=== PATIENT | male | born 1980 | race Caucasian/White ===

== ENCOUNTER 2021-03-15 10:28 | Outpatient (REF) | payer OTHER, SELFPAY ==
[2021-03-15 12:59] LABS: MANUAL DIFF FLAG NO
[2021-03-15 13:01] LABS: Basophils Percent Auto 0.4 % (0-2); Eosinophils Absolute Auto 0.2 X10*3/uL (0.0-0.4); Hematocrit 48.8 % (42-52); Hemoglobin 16.2 g/dl (14.0-18.0); Imm Gran Abs Auto 0.01 X10*3/uL (0.00-0.03); Imm Gran Pct Auto 0.2 % (0.0-0.4); Lymphocytes Absolute Auto 1.6 X10*3/uL (1.2-4.9); Lymphocytes Percent Auto 31.2 % (20-40); Mean Corpuscular HGB Conc 33.2 g/dl (31.0-36.0); Mean Corpuscular Hemoglobin 29.1 pg (27.0-33.0); Mean Corpuscular Volume 87.8 fL (80-98); Mean Platelet Volume 10.7 fL (9.4-12.4); Monocytes Absolute Auto 0.5 X10*3/uL (0.1-1.2); Monocytes Percent Auto 8.6 % (2-11); Neutrophils Absolute Auto 2.9 X10*3/uL (2.0-8.3); Neutrophils Percent Auto 55.6 % (45-73); Platelet Count 184 X10*3/uL (160-400); Red Blood Count 5.56 X10*6/uL (4.60-5.80); White Blood Count 5.3 X10*3/uL (4.8-10.8)
[2021-03-15 13:53] LABS: Alanine Aminotransferase 33 U/L (0-40); Albumin Level 4.7 g/dL (3.5-5.0); Alkaline Phosphatase 78 U/L (39-117); Anion Gap 17 (12-20); Aspartate Amino Transferase 25 U/L (5-37); Bilirubin Total 1.2 mg/dL (0.0-1.0); Blood Urea Nitrogen 16 mg/dL (9-16); Calcium 9.3 mg/dL (8.4-10.2); Carbon Dioxide 24 mmol/L (22-29); Chloride 105 mmol/L (96-108); Cholesterol 199 mg/dL; Estimated Glomerular Filt Rate > 60; Glucose Fasting 87 mg/dL (60-99); HDL Cholesterol 35 mg/dL; LDL Cholesterol Calculated 122 mg/dl; Potassium 5.6 mmol/L (3.3-5.1); Sodium 140 mmol/L (135-145); Total Protein 7.1 g/dL (6.5-8.0); Triglycerides 211 mg/dL
== END 2021-03-15 10:29 | disposition home or self-care (01) ==
LOC: HO.MANLDS 10:28
PROVIDERS: PCP Internal Medicine; Visit Provider Internal Medicine
DX: Z00.00 Encounter for general adult medical examination without abnormal findings (principal)
CPT/HCPCS: 36415; 80053; 80061; 85025

== ENCOUNTER 2021-04-12 10:47 | Outpatient (REF) | payer OTHER, SELFPAY ==
[2021-04-12 13:07] LABS: Alanine Aminotransferase 29 U/L (0-40); Albumin Level 4.3 g/dL (3.5-5.0); Alkaline Phosphatase 71 U/L (39-117); Anion Gap 10 (12-20); Aspartate Amino Transferase 18 U/L (5-37); Bilirubin Total 0.9 mg/dL (0.0-1.0); Blood Urea Nitrogen 15 mg/dL (9-16); Calcium 8.8 mg/dL (8.4-10.2); Carbon Dioxide 27 mmol/L (22-29); Chloride 107 mmol/L (96-108); Estimated Glomerular Filt Rate > 60; Glucose Fasting 82 mg/dL (60-99); Potassium 4.3 mmol/L (3.3-5.1); Sodium 140 mmol/L (135-145); Total Protein 6.6 g/dL (6.5-8.0)
== END 2021-04-12 10:48 | disposition home or self-care (01) ==
LOC: HO.MANLDS 10:47
PROVIDERS: PCP Internal Medicine; Visit Provider Internal Medicine
DX: E87.5 Hyperkalemia (principal)
CPT/HCPCS: 36415; 80053

== ENCOUNTER 2022-07-20 09:33 | Outpatient (REF) | payer OTHER, SELFPAY ==
[2022-07-20 11:21] LABS: MANUAL DIFF FLAG NO
[2022-07-20 11:39] LABS: Basophils Percent Auto 0.7 % (0-2); Eosinophils Absolute Auto 0.2 X10*3/uL (0.0-0.4); Eosinophils Percent Auto 4.1 % (0-4); Hematocrit 45.3 % (42.0-52.0); Hemoglobin 14.9 g/dl (14.0-18.0); Imm Gran Abs Auto 0.01 X10*3/uL (0.00-0.03); Imm Gran Pct Auto 0.2 % (0.0-0.4); Lymphocytes Absolute Auto 1.6 X10*3/uL (1.2-4.9); Lymphocytes Percent Auto 29.4 % (20-40); Mean Corpuscular HGB Conc 32.9 g/dl (31.0-36.0); Mean Corpuscular Hemoglobin 29.2 pg (27.0-33.0); Mean Corpuscular Volume 88.6 fL (80.0-98.0); Mean Platelet Volume 10.5 fL (9.4-12.4); Monocytes Absolute Auto 0.5 X10*3/uL (0.1-1.2); Monocytes Percent Auto 8.1 % (2-11); Neutrophils Absolute Auto 3.2 x10*3/uL (2.0-8.3); Neutrophils Percent Auto 57.5 % (45-73); Platelet Count 187 X10*3/uL (160-400); Red Blood Count 5.11 X10*6/uL (4.60-5.80); Red Cell Distribution Width 12.2 % (11.0-16.0); White Blood Count 5.6 X10*3/uL (4.8-10.8)
[2022-07-20 12:54] LABS: Alanine Aminotransferase 26 U/L (0-40); Albumin Level 4.3 g/dL (3.5-5.0); Alkaline Phosphatase 74 U/L (39-117); Anion Gap 12 (12-20); Aspartate Amino Transferase 19 U/L (5-37); Bilirubin Total 0.9 mg/dL (0.0-1.0); Blood Urea Nitrogen 16 mg/dL (9-16); Calcium 9.1 mg/dL (8.4-10.2); Carbon Dioxide 28 mmol/L (22-29); Chloride 106 mmol/L (96-108); Cholesterol 185 mg/dL; Estimated Glomerular Filt Rate > 60; Glucose Random 95 mg/dL (60-115); HDL Cholesterol 34 mg/dL; LDL Cholesterol Calculated 120 mg/dl; Potassium 5.4 mmol/L (3.3-5.1); Sodium 141 mmol/L (135-145); Total Protein 6.7 g/dL (6.5-8.0); Triglycerides 156 mg/dL
[2022-07-20 12:59] LABS: Prostate Specific Antigen 0.32 ng/mL (<0.05-4.0); Thyroid Stimulating Hormone 1.15 uIU/mL (0.32-4.0); Vitamin D 25-OH Total 30.1 ng/mL (>30)
== END 2022-07-20 09:34 | disposition home or self-care (01) ==
LOC: HO.MANLDS 09:33
PROVIDERS: Visit Provider Internal Medicine
DX: Z00.01 Encounter for general adult medical examination with abnormal findings (principal); Z12.5 Encounter for screening for malignant neoplasm of prostate; Z13.21 Encounter for screening for nutritional disorder
CPT/HCPCS: 36415; 80053; 80061; 82306; 84153; 84443; 85025

== ENCOUNTER 2023-09-13 08:35 | Outpatient (REF) | payer OTHER, SELFPAY ==
[2023-09-13 13:21] LABS: MANUAL DIFF FLAG NO
[2023-09-13 13:50] LABS: Basophils Percent Auto 0.8 % (0-2); Eosinophils Absolute Auto 0.2 X10*3/uL (0.0-0.4); Eosinophils Percent Auto 4.5 % (0-4); Hematocrit 45.3 % (42.0-52.0); Hemoglobin 14.8 g/dl (14.0-18.0); Imm Gran Abs Auto 0.01 X10*3/uL (0.00-0.03); Imm Gran Pct Auto 0.2 % (0.0-0.4); Lymphocytes Absolute Auto 1.4 X10*3/uL (1.2-4.9); Lymphocytes Percent Auto 29.7 % (20-40); Mean Corpuscular HGB Conc 32.7 g/dl (31.0-36.0); Mean Corpuscular Hemoglobin 29.1 pg (27.0-33.0); Mean Platelet Volume 10.9 fL (9.4-12.4); Monocytes Absolute Auto 0.4 X10*3/uL (0.1-1.2); Monocytes Percent Auto 8.1 % (2-11); Neutrophils Absolute Auto 2.7 x10*3/uL (2.0-8.3); Neutrophils Percent Auto 56.7 % (45-73); Platelet Count 190 X10*3/uL (160-400); Red Blood Count 5.09 X10*6/uL (4.60-5.80); Red Cell Distribution Width 12.3 % (11.0-16.0); White Blood Count 4.7 X10*3/uL (4.8-10.8)
[2023-09-13 14:06] LABS: Alanine Aminotransferase 28 U/L (0-40); Albumin Level 4.2 g/dL (3.5-5.0); Alkaline Phosphatase 67 U/L (39-117); Anion Gap 13 (12-20); Aspartate Amino Transferase 30 U/L (5-37); Blood Urea Nitrogen 14 mg/dL (9-16); Calcium 9.3 mg/dL (8.4-10.2); Carbon Dioxide 24 mmol/L (22-29); Chloride 106 mmol/L (96-108); Cholesterol 181 mg/dL (<200); Estimated Glomerular Filt Rate > 60; Glucose Random 83 mg/dL (60-115); HDL Cholesterol 37 mg/dL (>40); LDL Cholesterol Calculated 121 mg/dL (<100); Potassium 4.1 mmol/L (3.3-5.1); Sodium 139 mmol/L (135-145); Total Protein 6.9 g/dL (6.5-8.0); Triglycerides 119 mg/dL (<150)
== END 2023-09-13 08:36 | disposition home or self-care (01) ==
LOC: HO.MANLDS 08:35
PROVIDERS: Visit Provider Internal Medicine
DX: I10 Essential (primary) hypertension (principal)
CPT/HCPCS: 36415; 80053; 80061; 85025

== ENCOUNTER 2024-10-07 08:39 | Outpatient (REF) | payer OTHER, SELFPAY ==
[2024-10-07 13:23] LABS: MANUAL DIFF FLAG NO
[2024-10-07 13:37] LABS: Basophils Percent Auto 0.6 % (0-2); Eosinophils Absolute Auto 0.1 X10*3/uL (0.0-0.4); Eosinophils Percent Auto 1.9 % (0-4); Hematocrit 45.1 % (42.0-52.0); Imm Gran Abs Auto 0.01 X10*3/uL (0.00-0.03); Imm Gran Pct Auto 0.2 % (0.0-0.4); Lymphocytes Absolute Auto 1.4 X10*3/uL (1.2-4.9); Lymphocytes Percent Auto 25.7 % (20-40); Mean Corpuscular HGB Conc 33.3 g/dl (31.0-36.0); Mean Corpuscular Hemoglobin 29.4 pg (27.0-33.0); Mean Corpuscular Volume 88.4 fL (80.0-98.0); Mean Platelet Volume 10.2 fL (9.4-12.4); Monocytes Absolute Auto 0.6 X10*3/uL (0.1-1.2); Monocytes Percent Auto 10.3 % (2-11); Neutrophils Absolute Auto 3.3 x10*3/uL (2.0-8.3); Neutrophils Percent Auto 61.3 % (45-73); Platelet Count 210 X10*3/uL (160-400); Red Cell Distribution Width 12.4 % (11.0-16.0); White Blood Count 5.3 X10*3/uL (4.8-10.8)
[2024-10-07 13:52] LABS: Rheumatoid Factor < 13.0 IU/mL (<15.0)
[2024-10-07 14:14] LABS: Alanine Aminotransferase 37 U/L (0-40); Alkaline Phosphatase 71 U/L (39-117); Anion Gap 10 (12-20); Aspartate Amino Transferase 32 U/L (5-37); Bilirubin Total 0.7 mg/dL (0.0-1.0); Blood Urea Nitrogen 11 mg/dL (9-16); C Reactive Protein 0.18 mg/dL (< or = 0.50); Calcium 9.3 mg/dL (8.4-10.2); Carbon Dioxide 25 mmol/L (22-29); Chloride 107 mmol/L (96-108); Cholesterol 192 mg/dL (<200); Estimated Glomerular Filt Rate > 60; Glucose Random 91 mg/dL (60-115); HDL Cholesterol 35 mg/dL (>40); LDL Cholesterol Calculated 124 mg/dL (<100); Potassium 4.4 mmol/L (3.3-5.1); Sodium 138 mmol/L (135-145); Total Protein 6.7 g/dL (6.5-8.0); Triglycerides 165 mg/dL (<150); Uric Acid 7.5 mg/dL (3.4-7.0)
[2024-10-07 14:19] LABS: Erythrocyte Sedimentation Rate 7 MM/HR (0-15)
[2024-10-12 16:24] LABS: VITAMIN D (1,25 OH) D3 25 pg/mL; Vit D (1,25-Dihydroxy) Total 25 pg/mL (18-72); Vitamin D (1,25 OH) D2 <8 pg/mL
[2024-10-13 11:44] LABS: Anti Nuclear Antibody Screen NEGATIVE (NEGATIVE)
== END 2024-10-07 08:40 | disposition home or self-care (01) ==
LOC: HO.MANLDS 08:39
PROVIDERS: Visit Provider Physician Assistant
DX: E55.9 Vitamin D deficiency, unspecified (principal); I10 Essential (primary) hypertension; M25.50 Pain in unspecified joint
CPT/HCPCS: 36415; 80053; 80061; 82652; 84550; 85025; 85652; 86038; 86140; 86431

== ENCOUNTER 2025-04-13 09:50 | Outpatient (REF) | payer OTHER, SELFPAY ==
--- OUTSIDE RECORDS SUMMARY | 2025-04-13 10:53 | XMS_ITS | Data Portability ---
Author Organization [place] [facility] Her[facility] Mukherjee [facility] [place] Address [address] [place] [address] Care Team Providers Care Program Advisor Name Role Phone LONG DALAL Primary Care Provider [phone] LONG DALAL Referring Provider Assessment Encounter Date Assessment Date Assessment LastModified by Organization Details LastModified Time 02/02/2025 02/02/2025 I went over my findings with him. We looked at the MRI together. Unfortunately, this does confirm a likely near full-thickness tear of his supraspinatus insertion. The natural history of rotator cuff tears was reviewed. Treatment options discussed. We discussed that tears of the rotator cuff do not heal and may progress over time. With that being said, not all rotator cuff tears are symptomatic. We talked at length about treatment options including observation and activity modification, home exercise program/physical therapy, injection therapy, and surgical intervention with a arthroscopic versus open rotator cuff repair. We discussed the nature of the surgery as well as the anticipated recovery time. We discussed expectations regarding surgery, understanding that the primary goal is for improvement in pain and secondarily to maintain strength and range of motion. They understand that not all rotator cuff tears heal following surgery. We discussed that not all tears are repairable. We discussed that atrophic changes are generally not reversible. We discussed that some degree of weakness, stiffness, and/or pain may be present despite surgery. He finds his ongoing symptoms in the shoulder unmanageable. He is a candidate to consider shoulder arthroscopy with rotator cuff repair. Right shoulder arthroscopy, rotator cuff repair, subacromial decompression/acromi oplasty, possible biceps tenotomy vs tenodesis (25%). I went over the nature of the surgery with him as well as the anticipated recovery time. He understands there are no guarantees of success. Should he wish to move forward he can contact the surgical assistant. He would require a medical optimization appointment prior to proceeding with surgery. Greater than 30 minutes was spent with the encounter today, including face to face time with the patient, documentation, review of records/imaging if applicable, and coordination of care. PRIOR: Longstanding greater than 10 years of right shoulder pain. Previous MRI in 2021 demonstrated a partial tear of the supraspinatus. There is concern that his rotator cuff pathology may have progressed over the course of the last couple of years given his exam today. Given his persistent symptoms I recommend repeating his MRI. He is in agreement. I will see him back to go over the results. In the interim he will continue physical therapy/home exercises. He came in fairly certain that he needs surgery. Discussed with him that in many cases partial tears and rotator cuff problems can be managed successfully without surgery. With that said we will see what the MRI shows and how he is doing at the next visit. Questions invited and answered. Not available 03/09/2025 07:53:58 02/12/2025 02/12/2025 44-year-old male presents with chief complaint of left hip pain. He reports the onset of his symptoms as far back as 18 years ago. He reports a progressive worsening of severity and frequency of his pain. He is active . He reports that this is gotten to the point where he can no longer run without pain and even walking is becoming uncomfortable. He describes that rotating the hip provokes pain. He was evaluated at [facility] and was told at one point that he requires total hip arthroplasty. He denies a history of any prior surgery or injection to the left hip. He has done physical therapy for unrelated issues but never for the hip and has not used any specific medicines for left hip pain. He experiences the pain almost exclusively at the groin. 44-year-old male with BMI of 30.6 is ambulatory to the exam room under his own power and is providing his own history in a reliable manner. Direct inspection of left hip is with no visible abnormalities. Internal rotation beyond 20 degrees is provocative of the pain for which she is presenting and generates a painful affect. Distal checks are grossly intact. 44-year-old male with left hip pain. History, examination and x-rays are consistent with advanced osteoarthritis. After discussion regarding treatment options he will be provided an order for physical therapy. He recognizes that he will ultimately require total hip arthroplasty. He is not prepared to schedule surgery at this time but wishes to have further, additional conversation with Dr. Benson. In the interim, he will be provided a note describing that he cannot participate in the cardio components of his PT testing at work. This patient was seen and evaluated by Page Waterman MS, PA-Perry in indirect conjunction with documenting/supervis ing provider Conor Benson MD. He agrees with history, physical examination, tests/diagnostic imaging, and treatment plan. This document was generated using voice recognition software. As a result, there may be unintended spelling, grammatical and/or textual errors. Not available 02/12/2025 15:13:03 03/16/2025 03/16/2025 Persistent right knee pain. He finds his current symptomatology unmanageable and wishes to proceed with surgical intervention. I went over the nature of the surgery with him as well as the anticipated recovery time. He understands there are no guarantees of success. Medical clearance appointment is pending, we will confirm his surgical date once we have that paperwork. PLANNED PROCEDURE: Right knee arthroscopy, fat pad debridement and plica resection, possible chondroplasty I reviewed my findings and plan with the patient today. We went over the nature of the upcoming surgery as well as the anticipated recovery time. We discussed and reviewed the natural history of meniscus tears. We reviewed the function and anatomy of the meniscus. The menisci are fibrocartilaginous wedge-shaped structures that play many roles in the knee, including transmitting axial loads across the tibiofemoral articulation, increasing joint congruency, contact area and stability, decreasing contact pressures, and contributing to shock absorption, lubrication, and joint proprioception. The essential function of the meniscus in dissipating forces across the joint is enabled by a longitudinal orientation of circumferential collagen fibers which convert compressive forces to circumferential hoop stresses. (Arun ARENAS) Meniscus tears are common and may or may not be symptomatic. We discussed that clinical symptoms tend to be more important than radiographic findings. We reviewed treatment options. Many meniscus tears can be treated non-surgically and symptoms may respond to a program of activity modification, home exercise/physical therapy, oral medications, bracing, and/or injections. PRP injections may be considered. Surgical intervention with an arthroscopic partial meniscectomy vs repair is considered for persistent symptoms. The majority of meniscal tears are not repairable. Informed consent was obtained today. The patient clearly understands the information presented and is capable of making decisions voluntarily. They demonstrated a clear understanding of the problem and the risks and benefits of treatment. The discussion included a description of the proposed treatment, including the purpose, duration, methods and implements used, as well as the probability of success. We discussed all material risks of the procedure, as well as the possibility of unforeseen or unanticipated risks. The material risks include, but are not limited to infection, bleeding, injury to blood vessels and/or nerves, scarring, stiffness, no change in symptoms, need for further surgery, blood clots, stroke, and . The discussion further included reasonable alternatives and the risks of not being treated. Postoperative pain medications were reviewed, and side effects discussed. We confirmed their postoperative appointment. I have recommended the patient use a cold/compression unit post-operatively to reduce swelling, improve pain, and reduce the use of oral narcotic pain medications. The patient has been instructed on the use of the machine. The cuff will always be applied with the skin protected. PRIOR: Chronic right knee pain. He has a fair amount of retropatellar irritation and some fat pad impingement. No obvious meniscal tear on his MRI. I went over treatment options with him. Unfortunately he has trialed physical therapy and an injection without any meaningful improvement. He does find his symptoms persistent and limiting with regards to daily activities. Based upon his current imaging he is not a candidate to consider a knee arthroplasty. Right knee arthroscopy, fat pad debridement and plica resection, possible chondroplasty. I went over the nature of the surgery with him as well as the anticipated recovery time. He understands there are no guarantees of success. He understands alternatives including continuing to live with symptoms the way they are and continuing nonoperative treatment interventions. He will give this all consideration and be in touch with the surgical assistant should he wish to consider this further. He would require a medical optimization appointment prior to confirming a surgical date. Questions invited and answered. Not available 03/16/2025 12:08:19 03/23/2025 03/23/2025 HPI : Thank you for the pleasure of requesting a consultation on this patient. Patient comes in complaining of left hip pain. This patient is experiencing left hip pain, which is moderate in intensity, and has recently worsened. The pain limits some activities of daily living. Pain and restriction of function are significant at this time. He has done physical therapy. He has the medications. He has not having continued symptoms. He has been seen by Dr. Martinez for his right knee and right shoulder. Review of systems is negative for other rapidly progressive neurological disorder, chest pain, shortness of breath, fevers, chills, or any signs of active or persistent local or systemic infection. Physical Exam : Patient is well nourished, well-developed, in no acute distress, with appropriate mood and affect. The patient is oriented to time, place, and person. Respirations are even and unlabored. There is no inguinal adenopathy. Examination of the contralateral hip shows normal range of motion, strength, no tenderness, and intact skin. The affected limb is well-perfused, shows a grossly normal motor and sensory examination. Examination of the left hip shows no skin lesions. Hip motion is reduced. FADIR is positive and JUNIOR is positive. Stinchfield test is positive. Leg lengths are approximately left less than right by 5 mm.. Both hips are stable and muscle strength is normal. Pedal pulses are palpable. Radiographs of the left hip from January 2025 demonstrate degenerative joint disease with joint space narrowing, osteophyte formation, and subchondral sclerosis. Assessment/Plan : The patient has left hip arthritis. An extensive discussion was conducted on the natural history of the disease and the variety of surgical and non-surgical options available to the patient including non-steroidal anti-inflammatory medications, physical therapy, maintenance of ideal body weight, and reduction of activity. We had extensive discussion regarding total hip replacement. Since he is getting right knee arthroscopy surgery tomorrow with Dr. Martinez, we are holding off on total hip replacement surgery at this time. He is going to recover from this and monitor his symptoms. He will follow-up with me in 6 months with reevaluation at that time. 10 minutes reviewing previous charting. 10 minutes spent obtaining history. 5-minute spent on physical exam. 7 minutes spent reviewing treatment plan. [email or web address] Not available 03/23/2025 14:42:30 04/01/2025 04/01/2025 Patient is now 8 days status post right knee surgery and is recovering very well. I reviewed my findings with the patient today. We reviewed the operative findings. We reviewed precautions and gradual return to activity. He will follow-up with us in 4 to 5 weeks for recheck. Questions were invited and answered. Routine incision care reviewed. Medications reviewed. Side effects discussed. Precautions reviewed. DME adjusted as appropriate. [email or web address] Not available 04/01/2025 12:56:59 Plan of Treatment Reminders Order Date Submit Date Provider Last Modified By Organization Details Last Modified Time Details Appointments POST-OP 2024 03:30P M MATT CRUZ PA-C Not available Not available Not available FOLLOW UP 2024 04:00P M Conor Benson MD Not available Not available Not available Lab None recorded. Referral None recorded. Procedures None recorded. Surgeries shoulder arthrosco py (SURG) 2024 025 [email or web address] Not available 02/09/2025 08:47:44 Imaging XR, hip, unilatera l, 2 or 3 view 2024 025 [email or web address] [facility], [address], [place], [address], 02/12/2025 15:19:57 Medication Orders None recorded. Patient TargetsNo targets recorded. Patient Instructions Encounter Date Encounter Id Patient Instructions Last Modified By Organization Details Last Modified Time 02/02/2025 [id number] views of the right shoulder were obtained on 12/25/2024 in the [place] office. Glenohumeral joint space well-maintained. Acromiohumeral interval intact. Minimal degenerative changes at the AC joint. Type II acromion. Findings: Well-maintained joint space right shoulder. Interpreted by: Chilo Martinez MD Not available 02/02/2025 06:29:09 02/12/2025 [id number] physical therapy* [email or web address] Not availa ble 02/19/2025 08:24:10 work status report* - May not participate in cardio components of PT testing pending further orthopedic follow-up. [email or web address] Not available 02/19/2025 08:24:10 {{2 3 4* 5 6 7 8 9 }} view X-ray study obtained during today's office encounter show {{no}} evidence of {{mild moderate se chandrakant*}} {{right left* bila teral}} {{hip* knee}} osteoarthritis. There is joint space narrowing, subchondral sclerosis and marginal osteophytosis. Kellgren-Shorty grade {{0 1 2 3* 4}}. No evidence of acute fracture or osteolytic findings. Not available 02/12/2025 15:13:25 03/16/2025 [id number] views of the right shoulder were obtained on 12/25/2024 in the [place] office. Glenohumeral joint space well-maintained. Acromiohumeral interval intact. Minimal degenerative changes at the AC joint. Type II acromion. Findings: Well-maintained joint space right shoulder. Interpreted by: Chilo Martinez MD Not available 03/15/2025 12:17:35 Reason for Referral None Reported. Results Created Date Observation Date Name Description Value Unit Range Abnormal Flag Note LastModifiedBy Organization Detail LastModifiedTime 02/03/20 25 imagi ng/di elvieos tic resul t No observ ation record ed. [email or web address] Not Available 02/02 15:23:36 Result Notes None recorded. Problems Name Problem SNOMED Code Status Onset Date Resolution Date Notes Provider Name and Address Organization Details Recorded Time Pain of knee region 8569428256 Active 2024 Chilo Martinez MD [address], [place], [address], [place] [facility], [facility] 5 15:30:15 Synovial plica syndrome of right knee 5095662460935 00 Active [address], [place], [address], [place] [facility], [facility] 5 15:30:20 Pain of right shoulder region Active [address], [place], [address], [place] [facility], [facility] 5 12:49:53 Chronic pain of right upper limb 2670508089948 9108 Active 2024 Chilo Martinez MD [address], [place], [address], [place] [facility], [facility] 06:29:54 Full thickness rotator cuff tear 011845594 Active 2024 Chilo Martinez MD [address], [place], [address], [place] [facility], [facility] 5 15:44:09 Osteoarthri tis of left hip joint 7390691785479 08 Active 2024 PAGE WATERMAN PA-C [address], [place], [address], [place] [facility], [facility] 15:10:24 Problem Notes None recorded. Procedures Surgical History Date Name Laterality Status Provider Name and Address Organization Details Recorded Time 03/24/20 25 KNEE ARTHROSCOPY (SURG) completed Ana Laura Weeks [place] [facility] 03/25/2025 09:47:23 Shoulder Surgery completed Karissa Sapp [place] [facility] 12/25/2024 10:39:57 Imaging Results Imaging Date Name Status LastModified by [facility] Details LastModified Time 02/02/2025 imaging/diag nostic result completed [email or web address] Information not available 02/02/2025 15:23:36 Procedure Notes None recorded. Medical Equipment None Reported. Allergies No known drug allergies Medications Name Sig Start Date Stop Date Status Note LastModified by Organization Details LastModified Time prednisone 10 mg tablet TAKE 4 TABLETS BY MOUTH ONCE DAILY FOR 3 DAYS, THEN 3 TABLETS FOR 3 DAYS, THEN 2 TABLETS FOR 3 DAYS, THEN 1 TABLET FOR 3 DAYS 12/25 completed Not Available Not Available Not Available meloxicam 15 mg tablet TAKE 1 TABLET BY MOUTH IN THE MORNING FOR 7 DAYS. START THE DAY AFTER SURGERY 04/01 completed Not Available Not Available Not Available prednisone 20 mg tablet TAKE ONE TABLET BY MOUTH EVERY DAY FOR 10 DAYS 12/25 completed Not Available Not Available Not Available aspirin 81 mg tablet,shy yed release TAKE 1 TABLET BY MOUTH EVERY 12 HOURS WITH MEALS FOR 21 DAYS . START DAY AFTER SURGERY active Not Available Not Available No t Available amoxicillin 875 mg tablet TAKE ONE TABLET BY MOUTH EVERY 12 HOURS DIRECTED X 7 DAYS 12/25 completed Not Available Not Available Not Available methocarbam ol 750 mg tablet TAKE ONE TABLET BY MOUTH THREE TIMES A DAY NEEDED FOR SPASM 02/12 completed Not Available Not Available Not Available IBU 600 mg tablet TAKE ONE TABLET BY MOUTH FOUR TIMES A DAY NEEDED FOR PAIN. TAKE WITH FOOD OR MILK 02/12 completed Not Available Not Available Not Available trazodone 100 mg tablet TAKE ONE TABLET BY MOUTH EVERY DAY active Not Available Not Available No t Available cephalexin 500 mg capsule TAKE ONE CAPSULE BY MOUTH EVERY 6 HOURS START EVENING OF SURGICAL PROCEDURE DO NOT TAKE PRIOR TO SURGERY 04/01 completed Not Available Not Available Not Available lisinopril 10 mg tablet TAKE ONE TABLET BY MOUTH EVERY DAY active Not Available Not Available No t Available nifedipine ER 60 mg tablet,exte nded release TAKE ONE TABLET BY MOUTH EVERY DAY active Not Available Not Available No t Available ondansetron 4 mg disintegrat ing tablet DISSOLVE ONE TABLET BY MOUTH TWICE A DAY NEEDED FOR NAUSEA 04/01 completed Not Available Not Available Not Available oxycodone 5 mg tablet TAKE ONE TABLET BY MOUTH EVERY SIX TO EIGHT HOURS NEEDED . DO NOT START UNTIL AFTER SURGERY 04/01 completed Not Available Not Available Not Available Vitals Date Recorded Body height Body mass index (BMI) Body weight Provider Name and Address Organization Details Last Updated DateTime 02/02/2025 185.42 cm 30.6 kg/m2 726932.[address] [place] [facility] 02/02/2025 15:29:44 Date Recorded Body height Body mass index (BMI) Body weight Provider Name and Address Organization Details Last Updated DateTime 03/16/2025 185.42 cm 30.7 kg/m2 218212.[address] [facility] 03/16/2025 10:10:16 Date Recorded Body height Provider Name an d Address Organization Details Last Updated DateTime 03/23/2025 185[address] [place] [facility] 03/23/2025 14:27:22 Date Recorded Body height Body mass index (BMI) Body weight Provider Name and Address Organization Details Last Updated DateTime 04/01/2025 185.42 cm 30.6 kg/m2 947113.[address] [place] [facility] 04/01/2025 10:23:38 Social History None recorded. Functional Status Question Answer Note LastModified by Organizat ion Details LastModified Time How many times per week do you consume alcohol? 1-2 times per week [email or web address] Information not available 12/25/2024 Do you use any illicit or recreational drugs? No [email or web address] Information not available 12/25/2024 Do you or have you ever used any other forms of tobacco or nicotine? No [email or web address] Information not available 12/25/2024 What is your level of alcohol consumption? Occasional [email or web address] Information not available 12/25/2024 Are you currently employed? Yes [email or web address] Information not available 12/25/2024 What is your occupation? [email or web address] Information not available 12/25/2024 Mental Status None recorded. Family History Relationship Description Onset Age of this Age Resolved Age Notes LastModified by Organization Details LastModified Time Father History of cancer of unknown primary site [email or web address] Not available 10:39:18 Father Hypertensive disorder [email or web address] Not available 2024 10:39:37 Mother Hypertensive disorder [email or web address] Not available 2024 10:39:37 Brother Hypertensive disorder [email or web address] Not available 2024 10:39:37 Medical History Condition Response Hypertension Y Past Encounters Encounter ID Performer Location Encounter Start Date Encounter Closed Date Diagnosis/Indication Diagnosis SNOMED-CT Code Diagnosis ICD10 Code Diagnosis Note [id number] MD ERIKA Jones [address] [facility] [place] [address] 12/25/2024 10:21:47 12/25/2024 11:10:35 Pain of right shoulder region 6153301635 M25.511 [id number] MD ERIKA Jones [address] [place] [address] [place] [id number] 01/04/2025 15:06:10 01/04/2025 15:40:25 Pain of knee region 7961248505 M25.561 G89.29 Synovial p lica syndrome of right knee 3020780497 20402 M67.51 [id number] MD ERIKA Jones [place] [id number] 02/02/2025 15:21:03 02/02/2025 15:51:55 Chronic pain of right upper limb 7063268803 0994620 M25.511 G89.29 Full thick ness rotator cuff tear 087694515 M75.121 [id number] RASHAAD SAINZ [place] [id number] 02/12/2025 14:28:43 02/12/2025 15:19:08 Pain of hip region 74782602 M25.552 Osteoarthr itis of left hip joint 4872766483 50170 M16.12 [id number] MD ERIKA Jones [place] [id number] 03/16/2025 10:05:08 03/16/2025 10:27:59 Pain of knee region 4898680022 M25.561 G89.29 Synovial p lica syndrome of right knee 7768494734 55649 M67.51 [id number] [place] [id number] 03/23/2025 14:19:20 03/23/2025 14:44:05 Osteoarthritis of left hip joint 6817674122 68881 M16.12 [id number] [place] [id number] 04/01/2025 10:16:24 04/01/2025 10:47:08 Postoperative visit 686230867 Z48.89 History of operative procedure on knee 648615046 Z98.890 DOS 03/24/25: Right knee arthroscop y, fat pad debridemen t and plica resection, chondropla sty Health Concerns Section Related Observation LastModified by Organization Detai ls LastModified Time None Recorded Concern Status LastModified by Organization Details LastModified Time None Recorded Advance Directives Directive None Recorded Payers Encounter Date Sequence Insurance Name Policy Number Policy Mcdowell Covered Member ID Mcdowell Member ID Guarantor Name 02/02/2025 1 [facility] () Jakob Magallanes [id number] Jakob Magallanes 02/12/2025 1 [facility] () Jakob Magallanes [id number] Jakob Magallanes 03/16/2025 1 [employer] () Jakob Magallanes [id number] Jakob Magallanes 03/23/2025 1 [facility] () Jakob Magallanes [id number] Jakob Magallanes 04/01/2025 1 [facility] () Jakob Magallanes [id number] Jakob Magallanes Notes Date Note Type Note Provider Name and Address Organization Details Recorded Time 02/02/2025 text/html Patient returns for reevaluation of his right shoulder. No interval change in his symptoms. He rates his pain as a 4/10. He did have an MRI and brings it in today for review. PRIOR:44-year-old [id number] gentleman here for an evaluation of chronic right shoulder pain. He tells me he has a chronic history of bilateral shoulder problems related to doing repetitive push-ups in the . He is still in the . He has been evaluated and treated at [facility], but he tells me they no longer take his insurance. He had left shoulder surgery, looking at the records he brought it sounds like it was a rotator cuff repair. He states he is better after the surgery but still is in physical therapy for the rest of my life . He is having persistent somewhat similar right shoulder pain. The right side pops. He notes anterolateral discomfort with abduction. He notes some deep anterior pain. He has occasional night pain. He denies instability. He denies any radiating pain past the elbow. He recalls trying cortisone maybe once or twice in the right shoulder. He has had physical therapy in the past for the right side. Pain is variable ranging between a 2 to an 8 on a 10 point scale. He has been told he likely needs surgery for the right side and therefore presents today. He did have an MRI back in October 2022 of the right side. He has a history of high blood pressure. He smokes cigars. He is stationed at [employer] in [place]. Chilo Martinez MD [address], [place], [id number], [facility] - [facility] 03/09/2025 07:54:08 03/16/2025 text/html Patient returns for a preoperative consultation for upcoming right knee surgery. He reports no interval change in his symptoms. He denies any drug allergies. He is not taking any blood thinners. He denies a history of blood clots or DVT. Denies a history of clotting disorders. Denies a history of adverse reactions to anesthesia or history of malignant hyperthermia. PRIOR:44-year-old gentleman here for an evaluation of persistent chronic right knee pain. He recalls that he hyperextended the knee maybe 20 years ago but he never sought any evaluation or treatment. About 2 years ago he noted the knee starting to throb a bit. He reports occasional instability and some cracking. He has some retropatellar pain when he goes downstairs. He treated with a cortisone injection 3 to 4 months ago at [facility] without any real improvement. He has had some physical therapy focused on leg strengthening, he thinks that if anything it caused a bit of increased discomfort. He did his physical therapy at [facility]. He was told that [facility] that he needs a knee replacement. He has had workup with an MRI as well as x-rays. He also has a history of low back pain. He has bilateral hip pain, left greater than right and has been diagnosed with osteoarthritis. He is also having some shoulder issues. Chilo Martinez MD [address], [place], [id number], [facility] - [facility] 03/16/2025 12:08:27 04/01/2025 text/html DOS 03/24/25: Ri t knee arthroscopy, fat pad debridement and plica resection, chondroplasty Patient presents for their first post op visit. Patient is now 9 days status post right knee surgery. He reports his preoperative pain is gone. He feels great. He has not required any pain medication in about 4 days. He reports he has been back to his regular activities and is not feeling any discomfort. 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 Denies problems with the incisions. Denies chest pain, calf pain, or shortness of breath. MATT CRUZ PA-C [address], [place], [id number], [place] [facility] 04/01/2025 12:57:11
--- OUTSIDE RECORDS SUMMARY | 2025-04-13 10:53 | XMS_ITS | Data Portability ---
Author Organization [facility] Address [address] [place] [address] Assessment Encounter Date Assessment Date Assessment LastModified by Organization Details LastModified Time 09/23/2024 09/23/2024 Patient agreed and verbally consents to this audio and video Telehealth appt via a secure platform [email or web address] Not available 09/23/2024 11:07:51 10/26/2024 10/26/2024 [id number] [place] [id number] (FAMILY ADVOCATE) MDM MODERATE MUST MEET 2 OUT OF 3 ELEMENTS: PROBLEMS, DATA OR RISK ELEMENT 1: PROBLEMS ADDRESSED 1 OR MORE CHRONIC ILLNESS WITH EXACERBATION OR 2 OR MORE STABLE CHRONIC ILLNESSES OR 1 UNDIAGNOSED NEW PROBLEM OR 1 ACUTE ILLNESS W/SYMPTOMS OR 1 ACUTE COMPLICATED INJURY ELEMENT 2: DATA MUST MEET 1 OF 3 CATEGORIES CATEGORY 1: REVIEW OF PRIOR EXTERNAL NOTES, REVIEW OF RESULTS, ORDERING OF EACH TEST, ASSESSMENT REQUIRING INDEPENDENT HISTORIAN OR CATEGORY 2: INDEPENDENT INTERPRETATION OF TESTS BY ANOTHER PHYSICIAN OR SPECIALIST OR CATEGORY 3: DISCUSSION OF MGT OR TEST INTERPRETATION W/EXTERNAL PHYSICIAN OR SPECIALIST ELEMENT 3: RISK RISK OF COMPLICATIONS AND/OR MORBIDITY OR MORTALITY OF PATIENT MANAGEMENT PROVIDER MUST THOROUGHLY DOCUMENT EACH ELEMENT THAT IS COVERED Not available 10/26/2024 16:09:23 01/19/2025 01/19/2025 [address] [place] [address] (FAMILY ADVOCATE) : MDM LOW MUST MEET 2 OF 3 ELEMENTS: PROBLEMS, DATA OR RISK ELEMENT 1: PROBLEMS ADDRESSED (LOW): 2 OR MORE SELF-LIMITED OR MINOR PROBLEMS OR 1 STABLE CHRONIC ILLNESS OR 1 ACUTE UNCOMPLICATED ILLNESS OR INJURY ELEMENT 2: DATA TO BE REVISED AND ANALYZED (LOW) MUST MEET 1 OF 2 CATEGORIES: CATEGORY 1. REVIEW OF PRIOR EXTERNAL NOTES/RESULTS, ORDERING OF TEST(S) CATEGORY 2. ASSESSMENT REQUIRING INDEPENDENT HISTORIAN(S) INCLUDE WHO THE HISTORIAN IS AND RELATION TO PT AND WHY PT IS UNABLE TO GIVE COMPLETE HISTORY ELEMENT 3: RISK (LOW) RISK OF COMPLICATIONS AND/OR MORBIDITY OR MORTALITY OF PATIENT MANAGEMENT PROVIDER MUST THOROUGHLY DOCUMENT ALL OF THE ELEMENTS COVERED Not available 01/19/2025 15:33:44 04/09/2025 04/09/2025 [address] [place] [address] (FAMILY ADVOCATE) MDM MODERATE MUST MEET 2 OUT OF 3 ELEMENTS: PROBLEMS, DATA OR RISK ELEMENT 1: PROBLEMS ADDRESSED 1 OR MORE CHRONIC ILLNESS WITH EXACERBATION OR 2 OR MORE STABLE CHRONIC ILLNESSES OR 1 UNDIAGNOSED NEW PROBLEM OR 1 ACUTE ILLNESS W/SYMPTOMS OR 1 ACUTE COMPLICATED INJURY ELEMENT 2: DATA MUST MEET 1 OF 3 CATEGORIES CATEGORY 1: REVIEW OF PRIOR EXTERNAL NOTES, REVIEW OF RESULTS, ORDERING OF EACH TEST, ASSESSMENT REQUIRING INDEPENDENT HISTORIAN OR CATEGORY 2: INDEPENDENT INTERPRETATION OF TESTS BY ANOTHER PHYSICIAN OR SPECIALIST OR CATEGORY 3: DISCUSSION OF MGT OR TEST INTERPRETATION W/EXTERNAL PHYSICIAN OR SPECIALIST ELEMENT 3: RISK RISK OF COMPLICATIONS AND/OR MORBIDITY OR MORTALITY OF PATIENT MANAGEMENT PROVIDER MUST THOROUGHLY DOCUMENT EACH ELEMENT THAT IS COVERED Not available 04/09/2025 12:19:14 Plan of Treatment Reminders Order Date Submit Date Provider Last Modified By Organization Details Last Modified Time Details Appointments None recorded. Lab rf (rheumatoi d factor), serum 2024 025 [facility], [address] [place] [address], [place], [address], 12:30:13 ESR (erythrocy te sedimentat ion rate), blood 2024 025 [facility], [address] [place] [address], [place], [address], 12:30:13 C-reactive protein, quantitati ve, serum or plasma 2024 025 [facility], [address] [place] [address], [place], [address], 5 12:30:13 uric acid, serum or plasma 2024 025 [facility], [address] [place], [address], 05/16/202 5 15:55:03 C-reactive protein, quantitati ve, serum or plasma 2023 [facility] (Centralized Electronic Ordering - All Locations), Patient Can Go To The Location Of Their Choice, [facility] [place] [facility] [place] 16:15:24 uric acid, serum or plasma 2023 [facility] (Centralized Electronic Ordering - All Locations), Patient Can Go To The Location Of Their Choice, [id number] 16:15:23 HLA-B27 related Ag 2023 [facility] (Centralized Electronic Ordering - All Locations), Patient Can Go To The Location Of Their Choice, [id number] 16:15:24 sjogren antibody panel, serum 2023 LILY [facility] (Centralized Electronic Ordering - All Locations), Patient Can Go To The Location Of Their Choice, [facility] [place] [facility] [place] 19:17:29 CBC w/ auto diff 2023 [facility], [address] [place] [address], [address], 11:31:33 lipid panel, blood 2023 [facility], [address] [place] [address], [address], 11:31:33 vitamin D, 25-hydroxy , total, serum 2023 [facility], [address] [place] [address], [address], 4 11:22:25 uric acid, serum or plasma 2023 [facility], [address] [place] [address], [address], 4 11:15:10 C reactive protein, QN, serum or plasma 2023 [facility], [address] [place] [address], [address], 4 11:15:10 rf (rheumatoi d factor), serum 2023 [facility], [address] [place] [address], [address], 4 11:15:10 ESR (erythrocy te sedimentat ion rate), blood 2023 [facility], [address] [place] [address], [address], 4 11:15:10 ANGEL (antinucle ar antibodies ) screen, serum 2023 [facility], [address] [place] [address], [address], 4 11:56:13 CMP, serum or plasma 2023 [facility], [address] [place] [address], [address], 4 11:31:32 Referral None recorded. Procedures None recorded. Surgeries None recorded. Imaging XR, lumbar spine, 2 view [email or web address] [place] [address] [facility], [address] [place], [address], 5 13:48:50 XR, toe(s), 2 or more view 2024 025 [facility], [address] [place], [address], 5 13:48:50 XR, ankle, 3 or more view [address]23 [facility], [address] [place], [address], 17:04:07 XR, knee, [address] [facility], [address] [facility], [place], [address], 17:14:42 Medication Orders amoxicilli n 875 mg tablet 2023 024 [id number], [address] [place], [address], 15:43:15 Patient TargetsNo targets recorded. Patient Instructions Encounter Date Encounter Id Patient Instructions Last Modified By Organization Details Last Modified Time 01/19/2025 [id number] back care and preventing injuries: care instructions Not available 01/19/2025 15:38:44 getting back to normal after low back pain: care instructions Not available 01/19/2025 15:38:44 learning about relief for back pain Not available 01/19/2025 15:38:44 Reason for Referral None Reported. Results Created Date Observation Date Name Description Value Unit Range Abnormal Flag Note LastModifiedBy Organization Detail LastModifiedTime 10/28/20 24 10/28/2024 XR, ankle , 3 or more view No observ ation record ed. [email or web address] Not Available 2023 09:21:24 10/28/20 24 10/28/2024 XR, knee, 3 view No observ ation record ed. [email or web address] Not Available 2023 09:21:24 12/10/19 25 12/10/2024 MRI, knee, w/o contr ast No observ ation record ed. Not Available 2024 23:32:37 01/20/20 25 01/20/2025 MRI, shoul esteban, w/o contr ast No observ ation record ed. [email or web address] [facility] [address] [facility] [address], [place], [address], 01/29/2025 08:33:49 Result Notes None recorded. Problems Name Problem SNOMED Code Status Onset Date Resolution Date Notes Provider Name and Address Organization Details Recorded Time Insomnia 797241815 Active 2018 Not Available [facility] 3 13:43:22 Eczema 04839360 Completed 201911/22/2021 Removal Reason: resolve Sean Luo, DO [address] [place], [address], [facility] 1 16:13:27 Elevated blood-pr essure reading without diagnosi s of hyperten aileen 826017155 Completed 202011/22/2021 Sean Luo, DO [address] [facility], [place], [address], [facility] 1 16:13:39 Urethral strictur e 79026824 Active 2020 Not Available [facility] 3 13:43:22 Hyperten sive disorder 08514145 Active 2020 Not Available [facility] 3 13:43:22 Pain of right shoulder joint 8559441608 6020041 Active 2021 Not Available [facility] 3 13:43:22 Pain of right knee joint 4335741642 70889 Active 2021 Not Available [facility] 3 13:43:22 Tendinit is of right quadrice ps tendon 4162498750 8627873 Active 2021 Not Available [facility] 3 13:43:22 Pain of left shoulder joint 7805685719 8052426 Active [address] garcía doing well Sean Luo, DO [address] [facility], [place], [address], [facility] 3 14:41:58 Chondrom alacia of right patella 3952523648 4352538 Active 2021 Not Available [facility] 3 13:43:22 Adhesive capsulit is of right shoulder 2266256702 53527 Active 2021 Not Available [facility] 3 13:43:22 Fracture of left rib 9813425641 6997586 Active 2021 #9 rib Not Available [facility] 3 13:43:22 Supraspi natus tear 948703689 Active [address] Not [address] [facility] 3 13:43:22 Vitamin D deficien 03982440 Active 2022 Not [address] [facility] 3 13:43:22 Chronic insomnia 525798554 Active 2022 Sean Luo DO [address] [place] [address], [address], [facility] 3 16:16:19 Instabil ity of joint of right knee 6104741008 610415 Active 2022 Sean Luo DO [address] [place] [address], [address], [facility] 3 14:41:19 Pain of left hip joint 6230766972 13672 Active 2023 Sean Luo DO [address] [place] [address], [address], [facility] 4 15:57:38 Pain of multiple joints 28155600 Active 2023 Sean Luo DO [address] [place] [address], [address], [facility] 4 21:43:55 Acute bacteria l bronchit is 272614318 Active 2023 DOMI TIMMONS [address] [place] [address], [address], [facility] 4 11:07:40 Pain of right ankle joint 8150248221 4230423 Active 2023 Sean Luo DO [address] [place] [address], [address], [facility] 4 15:59:59 Generali zed osteoart hritis 420591987 Active 2023 Sean Luo DO [address] [place] [address], [address], [facility] 4 16:12:20 Injury of tendon of the rotator cuff of shoulder 958235436 Active 2024 Sean Luo, DO [address] [place] [address], [address], [facility] 5 23:34:29 Low back pain 396326862 Active 2024 Sean Luo, DO [address] [place] [address], [address], [facility] 5 15:34:00 Right rotator cuff strain Active 2024 Sean Luo [address], [address], [facility] 5 12:21:14 Rotator cuff arthropa thy of right shoulder 9126207536 6623143 Active 2024 Sean Luo DO [address] [place] [address], [address], [facility] 5 12:21:32 Rotator cuff arthropa thy of left shoulder 7151286852 9244104 Active 2024 Sean Luo, [address] [place] [address], [address], [facility] 5 12:22:23 Osteoart hritis of left hip joint 8557761067 19837 Active 2024 Sean Luo, [address] [place] [address], [address], [facility] 5 12:23:49 Pain in hallux 223292485 Active 2024 Sean Luo [address], [address], [facility] 5 12:24:03 Tenderne ss of left lumbar region of back 2842627678 Active 2024 Sean Luo DO [address] [place], [address], [facility] 5 12:24:19 Arthriti s 6628557 Active 2024 Sean Luo, DO [address] [place], [address], [facility] 5 12:28:27 Disorder of left sciatic nerve 9591056039 26875 Active 2024 Sean Luo, DO [address] [place], [address], [facility] 5 17:06:10 Problem Notes None recorded. Procedures Surgical History None recorded. Imaging Results Imaging Date Name Status LastModified by Organiz ation Details LastModified Time 10/28/2024 XR, ankle, 3 or more view completed Information not available 11/10/2024 09:21:24 10/28/2024 XR, knee, 3 view completed Information not available 11/10/2024 09:21:24 12/10/2024 MRI, knee, w/o contrast completed Information not available 12/26/2024 23:32:37 01/20/2025 MRI, shoulder, w/o contrast completed [email or web address] [facility] [address] [facility] [address], [place], [address], 01/29/2025 08:33:49 Procedure Notes None recorded. Medical Equipment None Reported. Allergies No known drug allergies Medications Name Sig Start Date Stop Date Status Note LastModified by Organization Details LastModified Time prednisone 10 mg tablet TAKE 4 TABLETS BY MOUTH ONCE DAILY FOR 3 DAYS, THEN 3 TABLETS FOR 3 DAYS, THEN 2 TABLETS FOR 3 DAYS, THEN 1 TABLET FOR 3 DAYS 06/12 completed Not Available Not Available Not Available trazodone 50 mg tablet Take 0.5 tablets every day by oral route at bedtime for 30 days. 04/26 completed Not Available Not Available Not Available azithromyci n 250 mg tablet TAKE 2 TABLETS ON FIRST DAY , THEN 1 TABLET DAILY FOR 4 DAYS 06/22 completed Not Available Not Available Not Available ibuprofen 800 mg tablet TAKE ONE TABLET BY MOUTH THREE TIMES A DAY FOR 7 DAYS 04/26 completed Not Available Not Available Not Available meloxicam 15 mg tablet TAKE 1 TABLET BY MOUTH IN THE MORNING FOR 7 DAYS. START THE DAY AFTER SURGERY active Not Available Not Available No t Available Medrol ([facility]) 4 mg tablets in a dose pack Take 1 dose pk by oral route as directed for 6 days, for SCIATICA. 2024 active Not Available Not Available Not Avai lable prednisone 20 mg tablet TAKE ONE TABLET BY MOUTH EVERY DAY FOR 10 DAYS 10/26 completed Not Available Not Available Not Available nifedipine ER 30 mg tablet,exte nded release TAKE ONE TABLET BY MOUTH EVERY DAY 03/07 completed Not Available Not Available Not Available amlodipine 5 mg tablet TAKE ONE TABLET BY MOUTH EVERY DAY 01/08 completed Not Available Not Available Not Available hydrocodone 10 mg-acetamin ophen 325 mg tablet TAKE ONE TABLET BY MOUTH TWICE A DAY FOR 7 DAYS 04/26 completed Not Available Not Available Not Available aspirin 81 mg tablet,shy yed release TAKE 1 TABLET BY MOUTH EVERY 12 HOURS WITH MEALS FOR 21 DAYS . START DAY AFTER SURGERY active Not Available Not Available No t Available triamcinolo ne acetonide 0.1 % topical cream 07/21 completed Not Available Not Available Not Available propranolol 10 mg tablet 05/27 completed Not Available Not Available Not Available amoxicillin 875 mg tablet TAKE ONE TABLET BY MOUTH EVERY 12 HOURS DIRECTED X 7 DAYS 10/26 completed Not Available Not Available Not Available methocarbam ol 750 mg tablet TAKE ONE TABLET BY MOUTH THREE TIMES A DAY NEEDED FOR SPASM 03/16 completed Not Available Not Available Not Available temazepam 15 mg capsule 05/27 completed Not Available Not Available Not Available IBU 600 mg tablet TAKE ONE TABLET BY MOUTH FOUR TIMES A DAY NEEDED FOR PAIN. TAKE WITH FOOD OR MILK 03/16 completed Not Available Not Available Not Available trazodone 100 mg tablet 1 po qd 2024 active Not Available Not Available Not Avai lable amlodipine 10 mg tablet TAKE ONE TABLET BY MOUTH EVERY DAY 01/08 completed Not Available Not Available Not Available cephalexin 500 mg capsule TAKE ONE CAPSULE BY MOUTH EVERY 6 HOURS START EVENING OF SURGICAL PROCEDURE DO NOT TAKE PRIOR TO SURGERY active Not Available Not Available No t Available lisinopril 10 mg tablet TAKE ONE TABLET BY MOUTH EVERY DAY active Not Available Not Available No t Available betamethaso ne dipropionat e 0.05 % topical cream APPLY A THIN LAYER TO THE AFFECTED AREA(S) TOPICALLY ONCE DAILY 04/26 completed Not Available Not Available Not Available levofloxaci n 500 mg tablet TAKE ONE TABLET BY MOUTH EVERY DAY FOR 7 DAYS 04/26 completed Not Available Not Available Not Available zolpidem 10 mg tablet TAKE ONE TABLET BY MOUTH ONCE DAILY IN THE EVENING IF NEEDED 03/16 completed Not Available Not Available Not Available nifedipine ER 60 mg tablet,exte nded release TAKE ONE TABLET BY MOUTH EVERY DAY active Not Available Not Available No t Available ondansetron 4 mg disintegrat ing tablet DISSOLVE ONE TABLET BY MOUTH TWICE A DAY NEEDED FOR NAUSEA active Not Available Not Available No t Available naproxen 500 mg tablet TAKE ONE TABLET BY MOUTH TWICE A DAY WITH FOOD 08/13 completed Not Available Not Available Not Available oxycodone 5 mg tablet TAKE ONE TABLET BY MOUTH EVERY SIX TO EIGHT HOURS NEEDED . DO NOT START UNTIL AFTER SURGERY active Not Available Not Available No t Available oxycodone 10 mg tablet Take 1 tablet 4 times a day by oral route as needed for 7 days. 2024 active Not Available Not Available Not Avai lable Fluzone Quad 60 mcg (15 mcg x 4)/0.5 mL intramuscul ar susp. 01/25 completed Not Available Not Available Not Available Flulaval Quad (PF) 60 mcg (15 mcg x 4)/0.5 mL IM syringe VACCINATI ON ADMINISTE RED BY PHARMACIS T 01/30 completed Not Available Not Available Not Available Vitals Date Recorded Body height Body mass index (BMI) Body weight Heart rate Oxygen saturation Oxygen saturation in Arterial blood by Pulse oximetry Systolic blood pressure Diastolic blood pressure Provider Name and Address Organization Details Last Updated DateTime 4 185.42 cm 30.9 kg/m2 081482. 61 g 78 /min 99 % 99 % 122 mm[Hg] 78 mm[Hg] Sean Luo, DO [address] [place], [address] [place] [address] Internal Medicine 4 15:44:32 Date Recorded Body height Body mass index (BMI) Body weight Heart rate Oxygen saturation Oxygen saturation in Arterial blood by Pulse oximetry Systolic blood pressure Diastolic blood pressure Provider Name and Address Organization Details Last Updated DateTime 5 185.42 cm 31.5 kg/m2 490145. 42 g 78 /min 95 % 95 % 118 mm[Hg] 78 mm[Hg] Aline Medina [facility] 5 16:14:02 Date Recorded Body height Body mass index (BMI) Body weight Heart rate Oxygen saturation Oxygen saturation in Arterial blood by Pulse oximetry Systolic blood pressure Diastolic blood pressure Provider Name and Address Organization Details Last Updated DateTime 5 185.42 cm 30.7 kg/m2 174720. 02 g 84 /min 98 % 98 % 118 mm[Hg] 68 mm[Hg] Carolbrian Covarrubias [facility] 5 11:42:58 Social History Question Answer Notes LastModified by Organizat ion Details LastModified Time Tobacco Smoking Status Never Smoker Maral saenz [facility] 05/27/2019 11:09:34 What Was The Date Of Your Most Recent Tobacco Screening? 04/09/2025 [email or web address] Information not available 04/09/2025 Sex: Unknown Functional Status Question Answer Note LastModified by Organization D etails LastModified Time Do you or have you ever used any other forms of tobacco or nicotine? No Information not available 04/09/2025 Mental Status None recorded. Family History Nothing Reported. Medical History No medical history recorded. Immunizations Vaccine Type Date Status Note Provider Nam e and Address Organization Details Recorded Time Influenza, split virus, quadrivalent, preservative 9 completed Not Available [facility] 02/07/2023 13:43:22 Influenza, split virus, quadrivalent, preservative 0 completed Not Available [facility] 02/07/2023 13:43:22 Past Encounters Encounter ID Performer Location Encounter Start Date Encounter Closed Date Diagnosis/Indication Diagnosis SNOMED-CT Code Diagnosis ICD10 Code Diagnosis Note [id number] Sean Luo [facility] [address] [facility],[place] [address] 05/27/2019 11:04:13 05/27/2019 12:04:19 Elevated blood-pressure reading without diagnosis of hypertension 057613003 R03.0 would recc he not smoke the hookah pipe with this poss bp issue History of urethral stricture 472248908 Z87.448 [id number] Sean Luo [facility] [address] [facility], [address] [facility] [place] [address] 07/21/2019 12:00:07 07/21/2019 12:25:55 Hypertensive disorder 47148452 I10 will cont to follow [facility] ([place], [place]) bp in 1 mo Hypercholesterolemia 136 76910 E78.00 will be repeating in november and trying hard with diet modificati on Insomnia 392676519 G47.0 0 [id number] Sean Luo [facility] [address] [facility], [place] [address] 08/19/2019 16:11:05 08/19/2019 16:38:43 Insomnia 365181071 G47.00 stable and is now doing well trazodone to cont at 50mg Hypercholesterolemia 136 59950 E78.00 will be repeating in november [place] [id number] Sean Luo [facility] [address] [facility], [place] [address] 01/26/2020 16:14:59 01/26/2020 16:51:38 Feeling stressed 534061953 Z73.3 will increase the dose of the trazodone to 100 Primary insomnia 7740373 F51.01 [id number] Sean Luo [facility] [address] [facility],[place] [address] 04/12/2020 08:57:32 04/12/2020 09:22:59 Contact dermatitis 50613993 L25.9 [id number] Sean Luo [facility] [address] [facility], [place] [address] 09/28/2020 09:45:52 09/28/2020 15:53:37 Injury of wrist 383490496 S69.92XA will start with XR sounds like overuse injury may just need brace, NSAIDs, and rest Pain in right knee 62256 05300 98937 M25.561 probs a tear, possibly meniscal, will most likely need an MRI Eczema 99412330 L30.9 will do a trial with topical steriod and see if improvemen t in pruritis Atypical chest pain 1025 53623 R07.89 will start with exercise stress test [place] evaluate [id number] Sean Luo [facility] [address] [facility],[place] [address] 10/12/2020 09:47:03 10/12/2020 10:41:30 Pain in right knee 9576470979 64541 M25.561 probs a tear, possibly meniscal, will most likely need an MRI Insomnia 148026358 G47.0 0 the patient is taking less trazodone, feeling much better back at 50 mg [id number] Sean Luo [facility] [address] [facility],[place] [address] 01/30/2021 16:01:11 01/31/2021 11:50:21 Active or passive immunization 952677066 Z23 Adult [facility] th examination 939952571 Z00.00 note he is having to self cath for many years due to urethral stricture / obstructio n seen by urologist and had been told needed to self cath w=hich he does over the last few years Urethral stricture 20934 002 N35.919 Contact dermatitis 59131 004 L25.9 and for prn allergic reaction [id number] Sean Luo [facility] [address] [facility],[place] [address] 06/28/2021 13:21:14 06/28/2021 15:47:26 Acute pharyngitis 097954090 J02.9 will fu with treatment for URInot COVID, sick contacts tested negative for COVID Cough 60820228 R05 productive coughcan use mucinex and anti-tussi ves OTC Upper resp iratory infection 56959203 J06.9 will fu with abx [id number] Sean Luo [facility] [address] [facility],[place] [address] 11/22/2021 07:59:49 11/22/2021 16:24:21 Elevated blood-pressure reading without diagnosis of hypertension 496606619 R03.0 now has consistent ly elevated bp Eczema 27563601 L30.9 seems to be doing ok and is now a non issue Insomnia 381439103 G47.0 0 stable and is now doing well takes zolpidem on occasion trazodone to cont at 50mg Hypertensive disorder 38 667501 I10 will cont to follow and rechk bp in 1 mo Urethral stricture 20763 002 N35.919 states he is having a great deal of trouble again and we will refer him back to the urologist [id number] Sean Luo [facility] [address] [facility] [place] [address] 06/22/2022 15:32:39 06/25/2022 08:34:46 Active or passive immunization 471228196 Z23 utd Adult heal th examination 172572456 Z00.01 note he is having to self cath for many years due to urethral stricture / obstructio n seen by urologist and had been told needed to self cath which he does over the last few yearsalso we will await to have his sleep study results back and see what happens with that. Pain of ri ght shoulder joint 2246236202 8846777 M25.511 we will need to start with a shoulder xray Tendinitis of right quadriceps tendon 3564963610 4213122 M76.891 having a great deal of discomfort when moving [id number] Sean Luo DO [facility] [address] [facility] [place] [address] 04/26/2023 15:46:44 04/26/2023 16:31:10 Chronic insomnia 185265966 F51.04 we will increase dose of trazodone to full tablet and tried for the next 3-4 weeksif not better we will consider a real sleep study [id number] Sean Lou DO [facility] [address] [facility] [place] [address] 08/13/2023 13:55:39 08/13/2023 15:15:35 Hypertensive disorder 04591491 I10 still elevated 160/100 yest will add lisinopril Instabilit y of joint of right knee 6059201673 196727 M25.361 [id number] Sean Luo [facility] [address] [facility], [place] [address] 06/12/2024 15:32:07 06/12/2024 16:06:54 Renewal of prescription 818548186 Z76.0 Depression screening 171 346847 Z13.31 SCREENING NEGATIVE Pain of le ft hip joint 8971892191 45200 M25.552 has phil getting worse and is noticeably worse Hypertensive disorder 38 377432 I10 doing great [id number] Sean Luo [facility] [address] [facility], [place] [address] 09/23/2024 09:55:07 09/23/2024 15:40:52 Acute bacterial bronchitis 576737458 J20.8 start amoxicilli n for probable bacterial infection given symptoms and length of time patient has been ill Vitamin D deficiency 347 69384 E55.9 needs recheck Hypertensive disorder 38 352988 I10 stable per patient, needs recheck bw Pain of mu ltiple joints 29550491 M25.50 will re-order bw for patient that MB wanted done [id number] Sean Luo [facility] [address] [place] [address], [place] [address] 10/26/2024 15:33:16 10/26/2024 16:16:36 Hypertensive disorder 05372306 I10 doing great Vitamin D deficiency 347 15153 E55.9 he had lab but insur not covering his vit d defic can we resubmit the order Pain of ri ght ankle joint 7554793202 0077475 M25.571 Pain of ri ght knee joint 0576753618 42594 M25.561 Generalize d osteoarthritis 164611654 M15.9 [id number] Sean Luo [facility] [address] [facility], [place] [address] 01/19/2025 08:37:31 01/19/2025 15:52:48 Low back pain 887894697 M54.50 will cont to treat conserv call if any change Instabilit y of joint of right knee 9349662931 490745 M25.361 needs a note saying no more running for fitness testing given patellar femoral damage [id number] Sean Luo [facility] [address] [facility],[place] [address] 03/16/2025 16:08:44 03/17/2025 09:03:16 Pre-surgery evaluation 284592637 Z01.818 The patient was seen in the office today for pre-op evaluation . All medical conditions on patient's problem list were addressed and are currently stable, no interventi on needed at this time. Based on history and physical performed, the patient is cleared for surgery. [id number] Sean Luo [facility] [address] [facility],[place] [address] 04/09/2025 11:20:47 04/09/2025 13:48:49 Rotator cuff arthropathy of right shoulder 2634498407 0173125 M75.101 M12.811 following the ortho docs Rotator cu ff arthropathy of left shoulder 9621441523 9138384 M75.102 M12.812 s/p surg repair Osteoarthr itis of left hip joint 7262110706 39877 M16.12 will need joint replacemen t Pain in hallux 650404244 M79.674 very sore and uncomforta ble Tenderness of left lumbar region of back 2966297076 M54.50 will need xray Arthritis 1490531 M19.90 Health Concerns Section Related Observation LastModified by Organization Detai ls LastModified Time None Recorded Concern Status LastModified by Organization Details LastModified Time None Recorded Advance Directives Directive None Recorded Payers Encounter Date Sequence Insurance Name Policy Number Policy Mcdowell Covered Member ID Mcdowell Member ID Guarantor Name 09/23/2024 1 [employer] () Jakob Magallanes [id number] Jakob Magallanes 10/26/2024 1 [employer] () Jakob Magallanes [id number] Jakob Magallanes 01/19/2025 1 [employer] () Jakob Magallanes [id number] Jakob Magallanes 03/16/2025 1 [facility] () Jakob Magallanes [id number] Jakob Magallanes 04/09/2025 1 [facility] () Jakob Magallanes [id number] Jakob Magallanes Notes Date Note Type Note Provider Name a nd Address Organization Details Recorded Time 4 text/html c/o sick symptoms The patient is participating in this appointment via telemedicine communication with a phone call/video calling service ([employer])The patient consents to use of these platforms in place of an in-person appointment due to either sick symptoms the patient is presenting with or current office closure due to COVID exposure in order to keep our office staff and patients safe the patient reports that The patient presents to the office today with concerns of sick symptoms including chest congestion, chest tightness, productive cough, sinus congestion/sinus pressure, thick mucus, dark yellow, mild sore throat, body aches The symptoms started originally about 2 weeks agoThe patient reports exposure to his 6 mos old son who goes to daycare, diagnosed recently with an ear infection per patient, currently on abxThe patient symptoms mainly involves the chest congestion, cough, and sinus pain Pertinent comorbidities include n/a The patient symptoms are alleviated by n/a, nothing has been helpfulThe patient symptoms are exacerbated by activity The patient has tested for COVID-19 and the results was negative DOMI TIMMONS [address] [place], [address], [facility] 09/23/2024 11:30:21 4 text/html here for rechkrelates he had an ankle sprain several years ago and this has begun bothering him more this has also bothered his right knee as well and this has been causing an issuealso he has been worried about the amount of arthritis Sean Luo DO [address] [place], [address], [facility] 10/26/2024 16:15:50 5 text/html patient is evaluated via tele/video assessment per patient consent during current pandemic relates over the past 3 weeks had some severe low back pain after shoveling snowno travel down legs was there at to p of right buttocvk lifting his head in bed would cause paincould only walk with a hunch over Sean Luo DO [address] [place], [address], [facility] 01/19/2025 15:38:59 5 text/html Pre-OpReported bypatient.Surgery to be Performed:right arthroscope with Dr. Chilo Martinez through [facility] Context/Condition Being Addressed:right knee pain Location:arthroscope Risk Factorsno cognitive impairment; no functional impairment; no malnutrition; no frailty; able to climb a flight of stairs (exercise capacity>4 METS); no obstructive sleep apnea; non-smoker; no alcohol misuse; no illicit drug use; no chronic cardiopulmonary condition; not obese Anesthesia hx:no hx of anesthesia complications; no allergy to anesthetic agents; no family history of anesthesia complications Functional Ability:able to walk up stairs; able to perform heavy work around the house; no difficulty walking up hills; able to walk 4 mph Post-Op Support:adequate assistance at home DOMI TIMMONS [address] [place], [address], [facility] 03/16/2025 16:53:41 5 text/html having ongoing pain with numerous jointshas need for replacement of right shoulder had left shoulder done alreadyneeds left hip replacementhas ongoing issues with right knee and is s/p arthroscopyhas now pain in the right great toe no know n injuryand now bothering for the past 3 modad and brother have gout Sean Luo DO [address] [place], [address], [facility] 04/09/2025 15:53:54
--- OUTSIDE RECORDS SUMMARY | 2025-04-13 10:53 | XMS_ITS | Continuity of Care Document ---
Author Organization [place] - [facility], [facility] Address [address] [facility] [place] [address] Assessment Encounter Date Assessment Date Assessment LastModified by Organization Details LastModified Time 04/09/2025 04/09/2025 [address] [place] [address] ([employer]) MDM MODERATE MUST MEET 2 OUT OF [...] rf (rheumatoi d factor), serum 2024 025 [facility], [address] [place] [address], [place], [address], 5 12:30:13 ESR (erythrocy te sedimentat ion rate), blood 2024 025 [facility], [address] [place] [address], [place], [address], 5 12:30:13 C-reactive protein, quantitati ve, serum or plasma 2024 025 [facility], [address] [facility], [place], [address], 12:30:13 uric acid, serum or plasma 2024 025 [facility], [address] [place], [address], 15:55:03 Referral None recorded. Procedures None recorded. Surgeries None recorded. Imaging XR, lumbar spine, 2 view 2024 025 [email or web address] [facility], [address] [place] [address], [address], 13:48:50 XR, toe(s), 2 or more view [email or web address] [place] [address] [facility], [address] [place] [address], [address], 13:48:50 Medication Orders None recorded. Patient TargetsNo targets recorded. Patient InstructionsNo instructions recorded. Reason for Referral None Reported. Problems Name Problem SNOMED Code Status Onset Date Resolution Date Notes Provider Name and Address Organization Details Recorded Time Insomnia 016793479 Active 2018 Not Available [facility] 13:43:22 Eczema 11311309 Completed 201911/22/2021 Removal Reason: resolve Sean Luo DO [address] [place] [address], [address], [facility] 16:13:27 Elevated blood-pr essure reading without diagnosi s of hyperten aileen 436528913 Completed 202011/22/2021 Sean Luo DO [address] [place], [address], [facility] 16:13:39 Urethral strictur e 69809184 Active 2020 Not Available [facility] 3 13:43:22 Hyperten sive disorder 09661834 Active 2020 Not Available [facility] 3 13:43:22 Pain of right shoulder joint 7632763860 2518206 Active 2021 Not Available [facility] 3 13:43:22 Pain of right knee joint 2505615991 85918 Active 2021 Not Available [facility] 3 13:43:22 Tendinit is of right quadrice ps tendon 2671328155 3720318 Active 2021 Not Available [facility] 3 13:43:22 Pain of left shoulder joint 0087819170 3295047 Active [address] garcía doing well Sean Luo, DO [address] [place], [address], [facility] 3 14:41:58 Chondrom alacia of right patella 7102908526 7307692 Active 2021 Not Available [facility] 3 13:43:22 Adhesive capsulit is of right shoulder 9388331244 93143 Active 2021 Not Available [facility] 3 13:43:22 Fracture of left rib 3443618199 9495677 Active 2021 #9 rib Not Available [facility] 3 13:43:22 Supraspi natus tear 026735310 Active 2021 Not Available [facility] 3 13:43:22 Vitamin D deficien cy 23825751 Active 2022 Not Available [facility] 3 13:43:22 Chronic insomnia 036252752 Active 2022 Sean Luo, DO [address] [place], [address], [facility] 3 16:16:19 Instabil ity of joint of right knee 4505331760 475754 Active 2022 Sean Luo, DO [address] [place], [address], [facility] 3 14:41:19 Pain of left hip joint 0221635666 29984 Active 2023 Sean Luo DO [address] [place] [address], [address], [facility] 4 15:57:38 Pain of multiple joints 16762280 Active 2023 Sean Luo DO [address] [place] [address], [address], [facility] 4 21:43:55 Acute bacteria l bronchit is 114854876 Active 2023 DOMI TIMMONS [address] [place] [address], [address], [facility] 4 11:07:40 Pain of right ankle joint 6245077436 7369462 Active 2023 Sean Luo DO [address] [place] [address], [address], [facility] 4 15:59:59 Generali zed osteoart hritis 226764973 Active 2023 Sean Luo DO [address] [place] [address], [address], [facility] 4 16:12:20 Injury of tendon of the rotator cuff of shoulder 798781612 Active 2024 Sean Luo DO [address] [place] [address], [address], [facility] 5 23:34:29 Low back pain 102047263 Active 2024 Sean Luo DO [address] [place] [address], [address], [facility] 5 15:34:00 Right rotator cuff strain Active 2024 Sean Luo DO [address] [place] [address], [address], [facility] 5 12:21:14 Rotator cuff arthropa thy of right shoulder 9291654821 3845805 Active 2024 Sean Luo DO [address] [place] [address], [address], [facility] 12:21:32 Rotator cuff arthropa thy of left shoulder 9622504301 5202400 Active 2024 Sean Luo DO [address] [place] [address], [address], [facility] 12:22:23 Osteoart hritis of left hip joint 8094949966 97160 Active 2024 Sean Luo DO [address] [place] [address], [address], [facility] 12:23:49 Pain in hallux 031020182 Active 2024 Sean Luo DO [address] [place] [address], [address], [facility] 12:24:03 Tenderne ss of left lumbar region of back 3553214802 Active 2024 Sean Luo DO [address] [place] [address], [address], [facility] 12:24:19 Arthriti s 3646753 Active 2024 Sean Luo DO [address] [place] [address], [address], [facility] 12:28:27 Disorder of left sciatic nerve 3552301166 86018 Active 2024 Sean Luo [address], [address], [facility] 17:06:10 Problem Notes None recorded. Medical Equipment None Reported. [...] and Address Organization Details Last Updated DateTime 185.42 cm 30.7 kg/m2 596313. 02 g 84 /min 98 % 98 % 118 mm[Hg] 68 mm[Hg] Carol Dangmond [facility] 11:42:58 Social History Question Answer Notes LastModified by Organizat ion Details LastModified Time Tobacco Smoking Status Never Smoker [facility] 05/27/2019 11:09:34 What Was The Date Of Your Most Recent Tobacco Screening? 04/09/2025 Information not available 04/09/2025 Sex: Unknown Functional [...] virus, quadrivalent, preservative 9 completed Not Available [facility] 02/07/2023 13:43:22 Influenza, split virus, quadrivalent, preservative 0 completed Not Available [facility] 02/07/2023 13:43:22 Past Encounters Encounter ID Performer Location Encounter Start Date Encounter Closed Date Diagnosis/Indication Diagnosis SNOMED-CT Code Diagnosis ICD10 Code Diagnosis Note [id number] Sean Luo [facility] [address],[place] [address] 03/16/2025 16:08:44 03/17/2025 09:03:16 Pre-surgery evaluation 977469565 Z01.818 The patient was seen in the office today for pre-op evaluation . All medical conditions on patient's problem list were addressed and are currently stable, no interventi on needed at this time. Based on history and physical performed, the patient is cleared for surgery. [id number] Sean Luo [facility] [address] [place] [address] 04/09/2025 11:20:47 04/09/2025 13:48:49 Rotator cuff arthropathy of right shoulder 2964081200 2434292 M75.101 M12.811 following the ortho docs Rotator cu ff arthropathy of left shoulder 2053225637 4947350 M75.102 M12.812 s/p surg repair Osteoarthr itis of left hip joint 4408879702 81607 M16.12 will need joint replacemen t Pain in hallux 882513287 M79.674 very sore and uncomforta ble Tenderness of left lumbar region of back 5420610836 M54.50 will need xray Arthritis 4166511 M19.90 Health Concerns Section Related Observation LastModified by Organization Detai ls LastModified Time None Recorded Concern Status LastModified by Organization Details LastModified Time None Recorded Payers Encounter Date Sequence Insurance Name Policy Number Policy Mcdowell Covered Member ID Mcdowell Member ID Guarantor Name 04/09/2025 1 [facility] () Jakob Magallanes [id number] Jakob Magallanes Notes Date Note Type Note Provider Name a nd Address Organization Details Recorded Time 04/09/2025 text/html having ongoing p ain with numerous jointshas need for replacement of right shoulder had left shoulder done alreadyneeds left hip replacementhas ongoing issues with right knee and is s/p arthroscopyhas now pain in the right great toe no know n injuryand now bothering for the past 3 modad and brother have gout Sean Luo, DO [address] [facility], [place], [address], [facility] 04/09/2025 15:53:54
--- OUTSIDE RECORDS SUMMARY | 2025-04-13 10:54 | XMS_ITS | Continuity of Care Document ---
Author Name [facility] Organization [facility] Care Team Providers Care Psychology Fellow Name Role Phone [facility] Unavailable Unavailable Problems Combined list of problems from Department of Defense and Veterans Affairs facilities. It does not include entries that were removed or entered in error. Problem Status Onset Date Problem Type Date of Resolution Comments Source UPPER RESPIRATORY INFECTION ACUTE Inactive Condition DoD COMMON COLD Inactive Condition DoD visit for: administrative purpose Inactive Condition DoD visit for: issue medical certificate Active Condition 1042 cleared DoD visit for: services flight physical Active Condition cleared for incentive flight x 14 days DoD GASTROENTERITIS VIRAL Active Condition DoD fever [as symptom] Inactive Condition T EMP 97.0 Frequent Fliud Intake Ibuprofen as needed DoD SINUSITIS Active Condition may use tylenol OTC for fevers, aches. [facility] VIRAL SYNDROME Inactive Condition Meets criteria for adeno testing DoD Medications Combined list of outpatient medications from Department of Defense and Veterans Affairs facilities.Medications provided include 1) outpatient medications from the last 15 months, and 2) patient-reported medications. Medication Details Route Status Patient Instructions Prescription Expires Prescription Number Last Dispense Date Ordering Provider Order Date Order Qty Source amLODIPine 10 mg oral tablet amLODIPi ne 10 mg oral tablet Start Date: 12/30/21 Status: Ordered Repeat number: 1 Ordered 2021 No Facilit y Access amLODIPine 5 mg oral tablet amLODIPi ne 5 mg oral tablet Start Date: 11/28/21 Status: Ordered Repeat number: 1 Ordered 2021 No Facilit y Access azithromyci n 250 mg oral tablet 0 total refill(s ) Ordered 2021 No Facilit y Access BOOSTRIX TDAP (DIPHTH,PER TUSS(ACELL) ,TET VAC), 2.5-8-5/.5, SYRINGE, INTRAMUSC, GLAXOSMITHK LINE, 0.5 ml SYRINGE Active [id number] 2023 0.5 Pharmac y Data Transac tion Service Facilit y NIFEdipine 30 mg oral tablet, extended release NIFEdipi ne 30 mg oral tablet, extended release Start Date: 01/12/22 Status: Ordered Repeat number: 1 Ordered 2021 No Facilit y Access NIFEdipine 30 mg oral tablet, extended release NIFEdipi ne 30 mg oral tablet, extended release Start Date: 02/02/22 Status: Ordered Repeat number: 1 Ordered 2021 No Facilit y Access NIFEdipine 60 mg oral tablet, extended release NIFEdipi ne 60 mg oral tablet, extended release Start Date: 02/07/22 Status: Ordered Repeat number: 1 Ordered 2021 No Facilit y Access NIFEDIPINE ER (nifedipine ), 60 MG, TABLET ER, ORAL, OCEANSIDE PHARM, 100 ea. BOTTLE Active [id number] 2023 90 Pharmac y Data Transac tion Service Facilit y PREDNISONE (prednisone ), 10 MG, TABLET, ORAL, AUROBINDO PHARM, 100 ea. BOTTLE Active [id number] 2023 30 Pharmac y Data Transac tion Service Facilit y PREDNISONE (PREDNISONE ), 10MG, TABLET, ORAL, CADISTA PHARMAC, 100 ea. BOTTLE Active [id number] 4 2023 30 Pharmac y Data Transac tion Service Facilit y predniSONE 10 mg oral tablet predniSO NE 10 mg oral tablet Start Date: 01/31/21 Status: Ordered Repeat number: 1 Ordered 2021 No Facilit y Access traZODone 100 mg oral tablet traZODon e 100 mg oral tablet Start Date: 07/19/21 Status: Ordered Repeat number: 1 Ordered 2021 No Facilit y Access traZODone 100 mg oral tablet traZODon e 100 mg oral tablet Start Date: 02/25/22 Status: Ordered Repeat number: 1 Ordered 2021 No Facilit y Access TRAZODONE HCL (trazodone HCl), 100 MG, TABLET, ORAL, TEVA [place], 500 ea. BOTTLE Active [id number] 2023 90 Pharmac y Data Transac tion Service Facilit y zolpidem 10 mg oral tablet zolpidem 10 mg oral tablet Start Date: 01/27/22 Status: Ordered Repeat number: 1 Ordered 2021 No Facilit y Access zolpidem 10 mg oral tablet zolpidem 10 mg oral tablet Start Date: 07/20/21 Status: Ordered Repeat number: 1 Ordered 2021 No Facilit y Access Allergies, Adverse Reactions, Alerts Combined list of allergies from Department of Defense and Veterans Affairs facilities. It does not include entries that were removed or entered in error. Substance Category Reaction Severity Reaction type Status Date Reported Comments Source No Known Allergies Drug allergy (disorder) active 01/03/2019 [facility] Immunizations Combined list of available immunizations from the Department of Defense and Veterans Affairs facilities. 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 Status Comments Source influenza virus vaccine, inactivated 2023 GASTON Rich Shoul esteban, left (delt oid) [id number] [employer] complet ed influenza virus vaccine, inactivat ed 10/08/24 Given [id number] MDG Tdap 2023 () Not Given Tdap DoD influenza, injectable, quadrivalent 2020 [id number] 158 GlaxoSmKBI BiopharmaKli ne complet ed influenza , injectabl e, quadrival ent 09/10/21 Given Ambulat ory Pharmac y influenza, injectable, quadrivalent, contains preservative 11 2020 [id number] 158 [employer] (SKB) complet ed influenza , injectabl e, quadrival ent, contains preservat logan DoD COVID Vaccine Moderna 2020 [id number] complet ed COVID Vaccine Moderna 03/31/21 Given Ambulat ory Pharmac y SARS-COV-2 (COVID-19) vaccine, mRNA, spike protein, LNP, preservative free, 100 mcg or 50 mcg dose 2 2020 [id number] 207 Moderna [employer]. (MOD) complet ed SARS-COV- 2 (COVID-19 ) vaccine, mRNA, spike protein, LNP, preservat logan free, 100 mcg or 50 mcg dose DoD COVID Vaccine Moderna 2020 [id number] complet ed COVID Vaccine Moderna 03/10/21 Given Ambulat ory Pharmac y SARS-COV-2 (COVID-19) vaccine, mRNA, spike protein, LNP, preservative free, 100 mcg or 50 mcg dose 1 2020 [id number] 207 Moderna US, Inc. (MOD) complet ed SARS-COV- 2 (COVID-19 ) vaccine, mRNA, spike protein, LNP, preservat logan free, 100 mcg or 50 mcg dose DoD influenza, injectable, quadrivalent 2019 [id number] 158 GlaxoSmithKli ne complet ed influenza , injectabl e, quadrival ent 10/26/20 Given Ambulat ory Pharmac y influenza, injectable, quadrivalent, contains preservative 1 2019 [id number] 158 SmithKline (SKB) complet ed influenza , injectabl e, quadrival ent, contains preservat logan DoD influenza, injectable, quadrivalent 2019 [id number] 158 GlaxoSmithKli ne complet ed influenza , injectabl e, quadrival ent 10/15/20 Given Ambulat ory Pharmac y influenza, injectable, quadrivalent, contains preservative 1 2019 [id number] 158 SmithMasquemedicosine (SKB) complet ed influenza , injectabl e, quadrival ent, contains preservat logan DoD influenza, injectable, quadrivalent- pf 2019 150 complet ed influenza , injectabl e, quadrival ent-pf 10/12/20 Given Ambulat ory Pharmac y influenza, injectable, quadrivalent, preservative free 2019 HARRIS, () Not Given influenza , injectabl e, quadrival ent, preservat logan free DoD Influenza, injectable, quadrivalent, preservative free 0 2019 150 (MVX) complet ed Influenza , injectabl e, quadrival ent, preservat logan free DoD influenza, injectable, quadrivalent 2018 158 complet ed influenza , injectabl e, quadrival ent 11/22/19 Given Ambulat ory Pharmac y influenza, injectable, quadrivalent 2018 HARRIS, () Not Given influenza , injectabl e, quadrival ent DoD influenza, injectable, quadrivalent, contains preservative 0 2018 158 (MVX) complet ed influenza , injectabl e, quadrival ent, contains preservat logan DoD influenza, injectable, quadrivalent- pf 2017 [id number] 150 Seqirus complet ed influenza , injectabl e, quadrival ent-pf 10/07/18 Given Ambulat ory Pharmac y Influenza, injectable, quadrivalent, preservative free 0 2017 [id number] 150 Seqirus (SEQ) comple t ed Influenza , injectabl e, quadrival ent, preservat logan free DoD tetanus, diphtheria, acellular pertu is 2017 [id number] 115 complet ed tetanus, diphtheri a, acellular pertussis 01/04/18 Given Ambulat ory Pharmac y tetanus toxoid, reduced diphtheria toxoid, and acellular pertu is vaccine, adsorbed 1 2017 [id number] 115 Transcribed (TRS) complet ed tetanus toxoid, reduced diphtheri a toxoid, and acellular pertussis vaccine, adsorbed DoD Influenza, inj, MDCK, quadrivalent- pf 2016 [id number] 171 Seqirus complet ed Influenza , inj, MDCK, quadrival ent-pf 09/08/17 Given Ambulat ory Pharmac y Influenza, injectable, Madin Paula Canine Kidney, preservative free, quadrivalent 1 [id number] 171 Seqirus (SEQ) comple t ed Influenza , injectabl e, Madin Paula Canine Kidney, preservat logan free, quadrival ent DoD influenza, seasonal, injectable-pf 2015 [id number] 140 Seqirus complet ed influenza , seasonal, injectabl e-pf 09/29/16 Given Ambulat ory Pharmac y Influenza, seasonal, injectable, preservative free 11 2015 [id number] 140 Seqirus (SEQ) comple t ed Influenza , seasonal, injectabl e, preservat logan free DoD typhoid Vi capsular polysaccharid e vac 2015 [id number] 101 sanofi pasteur complet ed typhoid Vi capsular polysacch aride vac 02/17/16 Given Ambulat ory Pharmac y typhoid Vi capsular polysaccharid e vaccine 2 2015 [id number] 101 Sanofi Pasteur ([facility]) complet ed typhoid Vi capsular polysacch aride vaccine DoD influenza, seasonal, injectable 2014 [id number] [id number] 141 CSL Behring complet ed influenza , seasonal, injectabl e 08/27/15 Given Ambulat ory Pharmac y Influenza, seasonal, injectable 10 2014 [id number] [id number] 141 CS TUTORizeherapies, Inc. (CSL) complet ed Influenza , seasonal, injectabl e DoD influenza, live, intranasal,qu adrivalent 2013 [id number] 149 Anacle Systems Inc comple t ed influenza , live, intranasa l,quadriv alent 09/25/14 Given Ambulat ory Pharmac y influenza, live, intranasal, quadrivalent 10 2013 [id number] 149 Telanetix, SolarNOW. (MED) complet ed influenza , live, intranasa l, quadrival ent DoD tuberculin purified protein derivative 2013 [id number] 96 sanofi pasteur complet ed tuberculi n purified protein derivativ e 01/01/14 Given Ambulat ory Pharmac y influenza, live, intranasal,qu adrivalent 2012 [id number] 149 Anacle Systems Inc comple t ed influenza , live, intranasa l,quadriv alent 09/03/13 Given Ambulat ory Pharmac y influenza, live, intranasal, quadrivalent 0 2012 [id number] 149 Telanetix, SolarNOW. (MED) complet ed influenza , live, intranasa l, quadrival ent DoD meningococcal polysaccharid e (MPSV4) 2012 [id number] 32 sanofi pasteur complet ed meningoco ccal polysacch aride (MPSV4) 05/22/13 Given Ambulat ory Pharmac y measles, mumps and rubella virus vaccine 0 2012 03 () Not Given measles, mumps and rubella virus vaccine DoD varicella virus vaccine 0 2012 21 () Not Given varicella virus vaccine DoD meningococcal polysaccharid e vaccine (MPSV4) 2 2012 [id number] 32 Sanofi Pasteur ([facility]) complet ed meningoco ccal polysacch aride vaccine (MPSV4) DoD hepatitis B vaccine, unspecified formulation 0 2012 45 () Not Given hepatitis B vaccine, unspecifi ed formulati on DoD tetanus, diphtheria, acellular pertu is 2011 [id number] 115 sanofi pasteur complet ed tetanus, diphtheri a, acellular pertussis 09/07/12 Given Ambulat ory Pharmac y tuberculin purified protein derivative 2011 [id number] 96 sanofi pasteur complet ed tuberculi n purified protein derivativ e 09/07/12 Given Ambulat ory Pharmac y influenza, seasonal, injectable 2011 [id number] 1A 141 CSL Behring complet ed influenza , seasonal, injectabl e 09/07/12 Given Ambulat ory Pharmac y tetanus toxoid, reduced diphtheria toxoid, and acellular pertu is vaccine, adsorbed 0 2011 [id number] 115 Sanofi Pasteur ([facility]) complet ed tetanus toxoid, reduced diphtheri a toxoid, and acellular pertussis vaccine, adsorbed DoD Influenza, seasonal, injectable 7 2011 [id number] 1A 141 [facility] ITao, Inc. (CS) complet ed Influenza , seasonal, injectabl e DoD anthrax vaccine 2011 [id number] 24 Emergent Biosolutions complet ed anthrax vaccine 01/10/12 Given Ambulat ory Pharmac y anthrax vaccine 2 2011 [id number] 24 Emergent BioDefense [facility] ([facility]) complet ed anthrax vaccine DoD influenza, seasonal, injectable-pf 2010 [id number] 140 sanofi pasteur complet ed influenza , seasonal, injectabl e-pf 08/26/11 Given Ambulat ory Pharmac y Influenza, seasonal, injectable, preservative free 1 2010 [id number] 140 Sanofi Pasteur ([facility]) complet ed Influenza , seasonal, injectabl e, preservat logan free DoD influenza virus vaccine,split 2009 [id number] 15 sanofi pasteur complet ed influenza virus vaccine,s plit 10/29/10 Given Ambulat ory Pharmac y influenza virus vaccine, split virus (incl. purified surface antigen)-reti red CODE 1 2009 [id number] 15 Sanofi Pasteur ([facility]) complet ed influenza virus vaccine, split virus (incl. purified surface antigen)- retired CODE DoD vaccinia (smallpox) vaccine 2009 VV04-00 3A 75 LilyMedia complet ed vaccinia (smallpox ) vaccine 08/21/10 Given Ambulat ory Pharmac y vaccinia (smallpox) vaccine 1 2009 VV04-00 3A 75 [facility] complet ed vaccinia (smallpox ) vaccine DoD vaccinia (smallpox) vaccine 2009 VV04-00 3A 75 [employer]Media complet ed vaccinia (smallpox ) vaccine 08/15/10 Given Ambulat ory Pharmac y vaccinia (smallpox) vaccine 1 2009 VV04-00 3A 75 [facility] ([facility]) complet ed vaccinia (smallpox ) vaccine DoD anthrax vaccine 2009 [id number] 24 Emergent Biosolutions complet ed anthrax vaccine 08/05/10 Given Ambulat ory Pharmac y typhoid Vi capsular polysaccharid e vac 2009 [id number] 101 sanofi pasteur complet ed typhoid Vi capsular polysacch aride vac 08/05/10 Given Ambulat ory Pharmac y anthrax vaccine 1 2009 [id number] 24 Emergent [employer] [place] ([facility]) complet ed anthrax vaccine DoD typhoid Vi capsular polysaccharid e vaccine 1 2009 [id number] 101 Sanofi Pasteur ([facility]) complet ed typhoid Vi capsular polysacch aride vaccine DoD influenza virus vaccine,split 2009 [id number] 2A 15 CSL Behring complet ed influenza virus vaccine,s plit 03/23/10 Given Ambulat ory Pharmac y influenza virus vaccine, split virus (incl. purified surface antigen)-reti red CODE 1 2009 [id number] 2A 15 CSE[employer]ressi[employer]Meteor, Inc. (CSL) complet ed influenza virus vaccine, split virus (incl. purified surface antigen)- retired CODE DoD Novel influenza-H1N 1-09, injectable 2009 [id number] 1 127 Novartis Pharmaceutica ls complet ed Novel influenza -P6X3-34, injectabl e 12/31/09 Given Ambulat ory Pharmac y Novel influenza-H1N 1-09, injectable 1 2009 [id number] 1 127 Novartis Pharmaceutica l Isabella. (NOV) complet ed Novel influenza -J3K2-92, injectabl e DoD influenza virus vaccine,split 2007 [id number] [id number] 15 sanofi pasteur complet ed influenza virus vaccine,s plit 10/30/08 Given Ambulat ory Pharmac y influenza virus vaccine, split virus (incl. purified surface antigen)-reti red CODE 1 2007 [id number] [id number] 15 Sanofi Pasteur ([facility]) complet ed influenza virus vaccine, split virus (incl. purified surface antigen)- retired CODE DoD influenza virus vaccine, live 2006 [id number] 111 SOAMAI comple t ed influenza virus vaccine, live 10/26/07 Given Ambulat ory Pharmac y influenza virus vaccine, live, attenuated, for intranasal use 1 2006 [id number] 111 Telanetix, Inc. (MED) complet ed influenza virus vaccine, live, attenuate d, for intranasa l use DoD hepatitis A adult vaccine 2006 [id number] 4AD 52 GlaxoSmithKli ne complet ed hepatitis A adult vaccine 08/22/07 Given Ambulat ory Pharmac y hepatitis A vaccine, adult dosage 2 2006 [id number] 4AD 52 SmithKline (SKB) complet ed hepatitis A vaccine, adult dosage DoD hepatitis A adult vaccine 2006 [id number] 5CA 52 GlaxoSmithKli ne complet ed hepatitis A adult vaccine 02/12/07 Given Ambulat ory Pharmac y measles, mumps and rubella virus vaccine 1 2006 03 () Not Given measles, mumps and rubella virus vaccine DoD varicella virus vaccine 1 2006 21 () Not Given varicella virus vaccine DoD hepatitis B vaccine, adult dosage 1 2006 43 () Not Given hepatitis B vaccine, adult dosage DoD hepatitis A vaccine, adult dosage 1 2006 [id number] 52 SmithKline (SKB) complet ed hepatitis A vaccine, adult dosage DoD influenza virus vaccine,split 2006 [id number] 15 sanofi pasteur complet ed influenza virus vaccine,s plit 02/06/07 Given Ambulat ory Pharmac y tuberculin purified protein derivative 2006 [id number] 96 sanofi pasteur complet ed tuberculi n purified protein derivativ e 02/06/07 Given Ambulat ory Pharmac y meningococcal polysaccharid e (MPSV4) 2006 [id number] 32 sanofi pasteur complet ed meningoco ccal polysacch aride (MPSV4) 02/06/07 Given Ambulat ory Pharmac y poliovirus vaccine, inactivated 2006 [id number] 10 sanofi pasteur complet ed polioviru s vaccine, inactivat ed 02/06/07 Given Ambulat ory Pharmac y tetanus-dipht h toxoids (Td) adult/adol 2006 [id number] 09 sanofi pasteur complet ed tetanus-d iphth toxoids (Td) adult/ado l 02/06/07 Given Ambulat ory Pharmac y tetanus and diphtheria toxoids, adsorbed, preservative free, for adult use (2 Lf of tetanus toxoid and 2 Lf of diphtheria toxoid) 1 2006 [id number] 09 Sanofi Pasteur (PMC) complet ed tetanus and diphtheri a toxoids, adsorbed, preservat logan free, for adult use (2 Lf of tetanus toxoid and 2 Lf of diphtheri a toxoid) DoD poliovirus vaccine, inactivated 1 2006 Z0018 10 Sanofi Pasteur (PMC) complet ed polioviru s vaccine, inactivat ed DoD influenza virus vaccine, split virus (incl. purified surface antigen)-reti red CODE 1 2006 [id number] 15 Sanofi Pasteur (PMC) complet ed influenza virus vaccine, split virus (incl. purified surface antigen)- retired CODE DoD meningococcal polysaccharid e vaccine (MPSV4) 1 2006 [id number] 32 Sanofi Pasteur ([facility]) complet ed meningoco ccal polysacch aride vaccine (MPSV4) DoD Results Combined list of recent chemistry, hematology and other laboratory results from Department of Defense and Veterans Affairs, ranging from 15 months to all on record, depending upon the facility. Order Name Results Value Reference Range Date Interpretation Specimen Comments Source Infectiou s Disease HIV-1/O/2 Non-Reac tive 1 (08/01/23 1:25 PM) 08/01 N Interpretiv e Data: INTERPRETAT ION: This method is a screening procedure for the detection of HIV p24 Antigen and Antibodies to HIV-1, including Group O, and/or HIV-2. NON-REACTIV E: HIV-1 antigen and HIV-1 / HIV-2 antibodies were not detected. No laboratory evidence of HIV infection. A negative test result does not exclude the possibility of exposure to or infection with HIV. HIV antibodies and/or p24 antigen may be undetectabl e in some stages of the infection and in some clinical conditions. If acute HIV infection is suspected, consider submitting another specimen to a reference laboratory for HIV-1 RNA. SCREEN REACTIVE - CONFIRMATIO N TO FOLLOW: Possible presence of HIV-1antibo dies, HIV-2 antibodies and/or HIV-1 p24 antigen. Specimen will reflex to the confirmatio n testing that fulfills the Center for Disease Control and Prevention' s HIV diagnostic algorithm. Refer to [facility] Lab Guide for additional information : [email or web address]/ [email or web address] x Testing performed by Hakeem raines [facility] [employer] EPILAB Miscellan eous Sendouts Repository Sample Received (08/01/23 1:25 PM) 08/01 N [facility]U [facility] EPILAB Encounters Combined list of: 1) Encounters from Department of Veterans Affairs facilities going backup to the last 18 months, not all VA inpatient encounters are included; 2) Encounters from the Department of [facility] facilities going backup to 280 months. Location Location Details Encounter Type Encounter Number Reason For Visit Attending Provider ADM Date DC Date Status Disposition Source [facility]) OUTPATIENT [id number] sore throat STEPHANIE RAMOS 03/25 Sick at Home/Quarter s [facility]) [employer]([facility]) OUTPATIENT [id number] fever,c ongesti on light headedn RUDY Hardy 04/07 Released w/o Limitations [employer]([facility]) [employer]([facility]) OUTPATIENT [id number] fever/s orethro at STEPHANIE RAMOS 05/21 Released w/o Limitations [employer]([facility]) [employer]([facility]) TELE CONSULT [id number] f/[id number] EMBER ROBERSON 05/22 [facility]) [employer]([facility]) OUTPATIENT [id number] nausea /vomiti MICHELLE Rodriguez 07/04 Sick at Home/Quarter s [employer]([facility]) [facility]) OUTPATIENT [id number] incenti ve/evelia JUDY Roach 09/26 Released w/o Limitations [employer] OUTPATIENT [id number] 06/02 Released w/o Limitations [facility] [employer]([facility]) OUTPATIENT [id number] Notes Entered by: Fabio REYES 08 May 2013 1224 ------- ------- ------- ------- -- cold sx BONI REYES 05/08 Released w/o Limitations [employer]([facility]) [employer]([facility]) OUTPATIENT [id number] Notes Entered by: LUCIAN LARA 30 Jul 2013 0625 ------- ------- ------- ------- -- sore throat BELKYS ROCHE 07/30 Released w/o Limitations [employer]([facility]) [employer]([facility]) OUTPATIENT [id number] Notes Entered by: LUCIAN LARA 04 Dec 2013 0636 ------- ------- ------- ------- -- sore throat BELKYS ROCHE 12/04 Released w/o Limitations [employer]([facility]) [place] [address](AFN G [address]) OUTPATIENT [id number] Notes Entered by: RADHA SARKAR 23 Dec 2017 0817 ------- ------- ------- ------- -- RADHA MCDOWELL 12/23 [facility] w[facility] Limitations [facility] [place] [place] [address](A FNG [address]) [place] [address](AFN G [address]) OUTPATIENT [id number] Notes Entered by: ERASTO LANG 17 Jan 2018 1707 ------- ------- ------- ------- -- EL Salmon 01/17 [facility] [place] [place] [address](A FNG [address]) [place] [facility]) OUTPATIENT [id number] Notes Entered by: DING IAN N W 01 Aug 2018 1202 ------- ------- ------- ------- -- Sleep difficu lty HORACIO DING W 08/01 Released w/o Limitations [facility]( [facility]) [place] [facility]) OUTPATIENT [id number] Notes Entered by: DINGIAN BAUTISTA W 15 Aug 2018 1437 ------- ------- ------- ------- -- Sleep difficu lty YESI DINGON W 08/15 Released w/o Limitations [facility]( [facility]) [facility] OUTPATIENT [id number] Notes Entered by: ERICA HERNANDEZ 12 Sep 2018 1100 ------- ------- ------- ------- -- Per Capt Ding TOÑA HORACIO W 09/12 Released w/o Limitations [facility]( [facility]) [place] [facility]) OUTPATIENT [id number] E/R Follow Up JAVAN OLSON 09/29 Released w/o Limitations [facility]( [facility]) [place] [facility]) OUTPATIENT [id number] F/U MH per LEI Padron 09/30 Released w/o Limitations [facility]( [facility] e [facility]) [place] [facility]) OUTPATIENT [id number] F/U Per JAY Ortiz 10/02 Released w/o Limitations [facility]( [facility]) [facility] OUTPATIENT [id number] 1 MELODY Gray 10/07 [facility]ased w/o Limitations [facility] [facility]( Cardiol ogy Clinic) [facility](Ca rdiology Clinic) OUTPATIENT [id number] Notes Entered by: BENITO HUSSEIN 13 Oct 2018 1459 ------- ------- ------- ------- -- Holter Report LASHA SWIFT 10/13 Released w/o Limitations [facility]( Cardiol ogy Clinic) [facility]) OUTPATIENT [id number] Notes Entered by: IAN DING 15 Oct 2018 1253 ------- ------- ------- ------- -- ER follow up HORACIO DING 10/15 Released w/o Limitations [facility]( Flight Medicin e Clinic) [place] [address](AFN G 104 Med Sq-FM) OUTPATIENT [id number] Notes Entered by: RADHA SARKAR 09 Sep 2019 1600 ------- ------- ------- ------- -- chest pain RADHA SARKAR 09/09 Released with Work/Duty Limitations [facility] [place] [address](A FNG 104 Med Sq-FM) [place] [address](AFN G 104 Med Sq-FM) OUTPATIENT [id number] Notes Entered by: RADHA SARKAR 25 Dec 2019 0940 ------- ------- ------- ------- -- PHAQ RADHA SARKAR 12/25 Released with Work/Duty Limitations [facility] [place] [place] [address](A FNG 104 Med Sq-FM) [place] [address](AFN G 104 Med Sq-FM) OUTPATIENT [id number] Notes Entered by: RADHA SARKAR 04 Feb 2021 0757 ------- ------- ------- ------- -- RADHA MCDOWELL 02/04 Released w/o Limitations [facility] [place] [address](A FNG 104 Med Sq-FM) [place] [address](AFN G 104 Med Sq-FM) OUTPATIENT [id number] Notes Entered by: RADHA SARKAR 12 Jan 2022 1219 ------- ------- ------- ------- -- RADHA Parr 01/12 Released w/o Limitations [facility] [place] [address](A FNG 104 Med Sq-FM) [place] [address](AFN G 104 Med Sq-FM) OUTPATIENT [id number] Notes Entered by: RADHA SARKAR 12 Jan 2022 1224 ------- ------- ------- ------- -- RADHA MCDOWELL 01/12 Released w/o Limitations [facility] [place] [address](A FNG 104 Med Sq-FM) [place] [address](AFN G 104 Med Sq-FM) OUTPATIENT [id number] Notes Entered by: RADHA SARKAR 23 Feb 2022 0854 ------- ------- ------- ------- -- RADHA Crespo 02/23 Released w/o Limitations [facility] [place] [address](A FNG 104 Med Sq-FM) [place] [address](AFN G 104 Med Sq-FM) TELE CONSULT [id number] RADHA SARKAR 09/26 [facility] [place] [place] [address](A FNG 104 Med Sq-FM) zzCorrine Marks Org Between Visit 07/22 Discharge Disposition: Home or Self Care Diane naranjo Org 8203R-104 MDG Mass Vaccine [id number] 10/08 8203R-1 04 MDG 8203R-104 MDG Care Not Rendered [id number] 01/21 Discharge Disposition: Home or Self Care 8203R-1 04 MDG 8203R-104 MDG Care Not Rendered [id number] 03/18 Discharge Disposition: Home or Self Care 8203R-1 04 MDG 8203R-104 MDG Care Not Rendered [id number] 03/19 Discharge Disposition: Home or Self Care 8203R-1 04 MDG Procedures Combined list of: 1) Procedures from Department of Veterans Affairs facilities going back up to thelast 18 months, not all VA non-surgical procedures are included; 2) All procedures from the Department of Defense facilities. Procedure Procedure Type Code Date Perfomer Comments Sourc e No data available for this section Ambulatory Pharmacy Holter Monitor 48-Hour Holter Monitor 48-Hour 92596 2017 MARGARET HUSSEIN [facility] Health And Behavior Intervention, Each 15 Minutes Individual Health And Behavior Intervention, Each 15 Minutes Individual 23164 2017 JAY MARRERO [facility] Exteranl Electrocardiographic Telemetry Technical Support Extera Electrocardiographic Telemetry Technical Support 12639 2017 MARGARET HUSSEIN [facility] Health And Behav A e mt Each 15 Min Initial A e ment Health And Behav Assessmt Each 15 Min Initial Assessment 99912 2017 ROCKY MANDUJANO [facility] Pulse Oximetry Pulse Oximetry 00525 2006 STEPHANIE RAMOS [facility] Pulse Oximetry Pulse Oximetry 08592 2006 RICHARD STEPHANIE Perry [facility] SHEEP SORTER ELECTROCARDIOGRAPHIC RECORDING UP TO 48 HOUR,CONT RHYTHM RECORDING & STORAGE;INCLUD RECORDING,SCANNING ANAL W REPORT,REVIEW &INTERPRETATION,A PHYSICIAN/OTHER QUALIFIED HEALTH CREDIT RELATIONSHIP MANAGER 2017 [facility] BRIEF EMOTIONAL/BEHAVIORAL ASSESSMENT (EG, DEPRESSION INVENTORY, ATTENTION-DEFICIT/HYPE RACTIVITY DISORDER [ADHD] SCALE), WITH SCORING AND DOCUMENTATION, PER STANDARDIZED INSTRUMENT 2017 [facility] BRIEF EMOTIONAL/BEHAVIORAL ASSESSMENT (EG, DEPRESSION INVENTORY, ATTENTION-DEFICIT/HYPE RACTIVITY DISORDER [ADHD] SCALE), WITH SCORING AND DOCUMENTATION, PER STANDARDIZED INSTRUMENT 2017 [facility] HEALTH&BEHAV ASSESSMENT (EG, HEALTH-FOC CLINICAL INTERVIEW, BEHAVIORAL OBSERVATIONS, PSYCHOPHYSICOLOGICAL MONITOR, HEALTH-ORIENT QUESTIONNAIRES), EA 15 MIN [id number] W THE PATIENT; INIT ASSESSMENT 2017 [facility] ELECTROCARDIOGRAM, ROUTINE ECG WITH AT LEAST 12 LEADS; WITH INTERPRETATION AND REPORT 2017 [facility] Social History Combined list of available smoking, tobacco, and other social history from Department of Defense and Veterans Affairs facilities. Social History Type Response Date Comment Sourc e This section is an empty social history section. [facility] Assessment and Plan Combined list of future care activities from Department of Defense and Veterans Affairs facilities (e.g., assessment and plan notes, appointments, orders, and referrals). Additional future care activities may be listed in the Plan of Care section. Result Assessment and Plan Date Source Assessment and Plan No data available for this section 04/13/2025 Ambulatory Pharmacy Functional Status Combined list of recent functional and cognitive assessments recorded at Department of Defense and Veterans Affairs ([place]).VA Functional Starke Measurement (FIM) Scale: 1 = Total Assistance (Subject = 0% +), 2 = Maximal Assistance (Subject = 25% +), 3 = Moderate Assistance (Subject = 50% +), 4 = Minimal Assistance (Subject = 75% +), 5 = Supervision, 6 = Modified Starke (Device), 7 = Complete Starke (Timely, Safely). Assessment Date/Time Source Assessment Type Assessment Skill Assessment Score Assessment Details No data available for this section
[2025-04-13 13:49] LABS: C Reactive Protein < 0.10 mg/dL (< or = 0.50); Uric Acid 7.6 mg/dL (3.4-7.0)
[2025-04-13 13:50] LABS: Rheumatoid Factor < 13.0 IU/mL (<15.0)
[2025-04-13 13:59] LABS: Erythrocyte Sedimentation Rate 4 MM/HR (0-15)
== END 2025-04-13 09:51 | disposition home or self-care (01) ==
LOC: HO.MANLDS 09:50
PROVIDERS: Visit Provider Internal Medicine
DX: M79.674 Pain in right toe(s) (principal); M19.90 Unspecified osteoarthritis, unspecified site
CPT/HCPCS: 36415; 84550; 85652; 86140; 86431

== ENCOUNTER 2025-05-18 15:14 | Outpatient (REF) | payer OTHER, SELFPAY ==
--- OUTSIDE RECORDS SUMMARY | 2025-05-18 18:26 | XMS_ITS | Continuity of Care Document ---
Author Organization [place] - [facility], [facility] Address [address] [place] [address] Assessment Encounter Date Assessment Date Assessment LastModified by Organization Details LastModified Time 05/17/2025 05/17/2025 [address] [place] [address] (BLANKET FOLDER) MDM MODERATE MUST MEET 2 OUT OF [...] EACH ELEMENT THAT IS COVERED Not available 05/17/2025 12:32:53 Plan of Treatment Reminders Order Date Submit Date Provider Last Modified By Organization Details Last Modified Time Details Appointments None recorded. Lab uric acid, serum or plasma 2024 025 [facility], [address] [place] [address], [place], [address], 13:12:25 erythrocyt e sedimentat ion rate by westergren method 2024 025 [facility], [address] [place] [address], [place], [address], 13:12:25 Referral rheumatolo gist referral 2024 025 [facility], [facility] [place], [address], 5 11:34:35 Procedures None recorded. Surgeries None recorded. Imaging None recorded. Medication Orders None recorded. Patient TargetsNo targets recorded. Patient InstructionsNo instructions recorded. Reason for Referral Crossing [place]eman Referral for Pain of multiple joints Referring Physician: Sean Luo, Internal Medicine, Encounter Date: 05/17/2025 Problems Name Problem SNOMED Code Status Onset Date Resolution Date Notes Provider Name and Address Organization Details Recorded Time Insomnia 191050301 Active 2018 Not Available [facility] 3 13:43:22 Eczema 45601508 Completed 201911/22/2021 Removal Reason: resolve Sean Luo, DO [address] [place], [address], [facility] 1 16:13:27 Elevated blood-pr essure reading without diagnosi s of hyperten aileen 957042856 Completed 202011/22/2021 Sean Luo, DO [address] [place], [address], [facility] 1 16:13:39 Urethral strictur e 53981102 Active 2020 Not Available [facility] 3 13:43:22 Hyperten sive disorder 03869610 Active 2020 Not Available [facility] 3 13:43:22 Pain of right shoulder joint 4602847839 3737727 Active 2021 Not Available [facility] 3 13:43:22 Pain of right knee joint 4083386986 49231 Active 2021 Not Available [facility] 3 13:43:22 Tendinit is of right quadrice ps tendon 6440215555 0037502 Active 2021 Not Available [facility] 3 13:43:22 Pain of left shoulder joint 3504782470 5215103 Active [address] garcía doing well Sean Luo DO [address] [place], [address], [facility] 3 14:41:58 Chondrom alacia of right patella 6207068783 4015813 Active 2021 Not Available [facility] 3 13:43:22 Adhesive capsulit is of right shoulder 0687419854 25317 Active 2021 Not Available [facility] 3 13:43:22 Fracture of left rib 8383781321 5226744 Active 2021 #9 rib Not Available [facility] 3 13:43:22 Supraspi natus tear 303388383 Active 2021 Not Available [facility] 3 13:43:22 Vitamin D deficien cy 71606497 Active 2022 Not Available [facility] 3 13:43:22 Chronic insomnia 886860102 Active 2022 Sean Luo DO [address] [place] [address], [address], [facility] 3 16:16:19 Instabil ity of joint of right knee 8591954383 833454 Active 2022 Sean Luo DO [address] [place] [address], [address], [facility] 3 14:41:19 Pain of left hip joint 0645658850 09877 Active 2023 Sean uLo DO [address] [place] [address], [address], [facility] 4 15:57:38 Pain of multiple joints 44744715 Active 2023 Sean Luo DO [address] [place] [address], [address], [facility] 4 21:43:55 Acute bacteria l bronchit is 409057962 Active 2023 DOMI TIMMONS [address] [place] [address], [address], [facility] 4 11:07:40 Pain of right ankle joint 6927436350 1118215 Active 2023 Sean Luo, DO [address] [place] [address], [address], [facility] 4 15:59:59 Generali zed osteoart hritis 283924637 Active 2023 Sean Luo, DO [address] [place] [address], [address], [facility] 4 16:12:20 Injury of tendon of the rotator cuff of shoulder 951970606 Active 2024 Sean Luo DO [address] [place] [address], [address], [facility] 5 23:34:29 Low back pain 565980527 Active 2024 Sean Luo, [address] [place] [address], [address], [facility] 5 15:34:00 Right rotator cuff strain Active 2024 Sean Luo DO [address] [place] [address], [address], [facility] 5 12:21:14 Rotator cuff arthropa thy of right shoulder 9814951283 5859087 Active 2024 Sean Luo DO [address] [place] [address], [address], [facility] 5 12:21:32 Rotator cuff arthropa thy of left shoulder 3580152244 0836306 Active 2024 Sean Luo DO [address] [place] [address], [address], [facility] 5 12:22:23 Osteoart hritis of left hip joint 2601387908 82198 Active 2024 Sean Luo DO [address] [place] [address], [address], [facility] 5 12:23:49 Pain in hallux 110397318 Active 2024 Sean NatividadSara Luo, DO [address] [place] [address], [address], [facility] 5 12:24:03 Tenderne ss of left lumbar region of back 3494714988 Active 2024 Sean Luo, DO [address] [place] [address], [address], [facility] 5 12:24:19 Arthriti s 2930939 Active 2024 Sean Luo, [address], [address], [facility] 5 12:28:27 Disorder of left sciatic nerve 2534710398 63406 Active 2024 Sean Luo, DO [address] [place] [address], [address], [facility] 5 17:06:10 Lumbosac ral spondylo sis 086024941 Active 2024 Sean Luo, [address], [address], [facility] 21:37:04 Problem Notes None recorded. Medical Equipment None Reported. Allergies No known drug allergies Medications Name Sig Start Date Stop Date Status Note LastModified by Organization Details LastModified Time prednisone 10 mg tablet TAKE 4 TABLETS BY MOUTH ONCE DAILY FOR 3 DAYS, THEN 3 TABLETS FOR 3 DAYS, THEN 2 TABLETS FOR 3 DAYS, THEN 1 TABLET FOR 3 DAYS active Not Available Not Available No t Available trazodone 50 mg tablet Take 0.5 [...] Not Available Not Available No t Available prednisone 20 mg tablet TAKE ONE [...] Not Available Not Available No t Available tramadol 50 mg tablet TAKE ONE TABLET BY MOUTH EVERY 6 HOURS NEEDED active Not Available Not Available No t [...] completed Not Available Not Available Not Available methylpredn isolone 4 mg tablets in a dose pack TAKE SIX TABLETS FOR 1 DAY, THEN FIVE TABLETS FOR 1 DAY, THEN FOUR TABLETS FOR 1 DAY,THEN THREE TABLETS FOR 1 DAY, THEN TWO TABLETS FOR 1 DA active Not Available Not Available No t [...] No t Available oxycodone 10 mg tablet TAKE ONE TABLET BY MOUTH FOUR TIMES A DAY NEEDED active Not Available Not Available No t Available Fluzone Quad 60 mcg (15 mcg x [...] Updated DateTime 5 185.42 cm 30.7 kg/m2 265486. 02 g 80 /min 97 % 97 % 120 mm[Hg] 72 mm[Hg] [facility] 5 12:23:54 Social History Question Answer Notes LastModified by Organizat ion Details LastModified Time Tobacco Smoking Status Never Smoker Maral Sarmiento [facility] [place] 05/27/2019 11:09:34 What Was The Date Of Your Most Recent Tobacco Screening? 04/09/2025 [email or web address] Information not available 04/09/2025 Sex: Unknown Functional Status Question Answer Note LastModified by Organization D etails LastModified Time Do you or have you ever used any other forms of tobacco or nicotine? No [email or web address] Information not available 04/09/2025 Mental Status None recorded. Family History Nothing Reported. Medical History No medical history recorded. Immunizations Vaccine Type Date Status Note Provider Nam e and Address Organization Details Recorded Time Influenza, split virus, quadrivalent, preservative 9 completed Not Available [facility] 02/07/2023 13:43:22 Influenza, split virus, quadrivalent, preservative 0 completed Not Available [facility] 02/07/2023 13:43:22 Past Encounters Encounter ID Performer Location Encounter Start Date Encounter Closed Date Diagnosis/Indication Diagnosis SNOMED-CT Code Diagnosis ICD10 Code Diagnosis Note [id number] Sean Luo [facility] [address],[place] [address] 05/17/2025 12:20:09 05/17/2025 14:12:57 Hypertensive disorder 48131310 I10 doing great Generalize d osteoarthritis 713378076 M15.9 Lumbosacra l spondylosis 711653225 M47.817 waiting for mri will order tramadol in meantime Vitamin D deficiency 347 51212 E55.9 he had lab but insur not covering his vit d defic can we resubmit the order Pain of mu ltiple joints 81193966 M25.50 Depression screening 171 858231 Z13.31 SCREENING NEGATIVE Pain in hallux 510218517 M79.674 very sore and uncomforta ble Health Concerns Section Related Observation LastModified by Organization Detai ls LastModified Time None Recorded Concern Status LastModified by Organization Details LastModified Time None Recorded Payers Encounter Date Sequence Insurance Name Policy Number Policy Mcdowell Covered Member ID Mcdowell Member ID Guarantor Name 05/17/2025 1 [facility] () Jakob Magallanes [id number] Jakob Magallanes Notes Date Note Type Note Provider Name and Address Organization Details Recorded Time 05/17/20 25 text/ht ml Care Management - Anxiety/DepressionReported bypatient.Severity:denies suicidal ideations; able to maintain relationships; does not interfere with activities of daily living Context:no major life stressors Associated Symptoms:denies homicidal ideations; no significant weight gain; no significant weight loss; no visual/auditory hallucinations; no delusions; no shortness of breath; mood good; no anxiety; no crying spells; no panic; no isolation; sleeping well; appetite appropriate; energy appropriate; no apathy; maintaining functionalityChronic Pain Follow-upReported bypatient.ADL Improvements:physically functioning; able to maintain relationships; mood unaffected; sleep patterns undisturbed; overall function improved Adverse Reactions:no nausea; no vomiting; no constipation; no itching; no mental cloudiness; no sweating; no fatigue; no drowsiness; no sexual dysfunctionMusculoskeletal PainReported bypatient.Location:pain is not radiating Severity:improving Associated Symptoms:no fever; no weak limbs; no tingling; no numbness of the legs/feet; no incontinence ADL (Activities of Daily Living)improve with medication here for rechk of bp doing ok overall priorhaving ongoing pain with numerous jointshas need for replacement of right shoulder had left shoulder done alreadyneeds left hip replacementhas ongoing issues with right knee and is s/p arthroscopyhas now pain in the right great toe no know n injuryand now bothering for the past 3 modad and brother have gout Sean Luo, DO [address] [facility], [place], [address], [facility] 05/17/2025 12:40:19
[2025-05-18 19:01] LABS: Uric Acid 6.8 mg/dL (3.4-7.0)
[2025-05-18 20:10] LABS: Erythrocyte Sedimentation Rate 3 MM/HR (0-15)
== END 2025-05-18 15:15 | disposition home or self-care (01) ==
LOC: HO.MANLDS 15:14
PROVIDERS: Visit Provider Internal Medicine
DX: M79.674 Pain in right toe(s) (principal)
CPT/HCPCS: 36415; 84550; 85652